=== PATIENT | female | born 2000 | race Caucasian/White ===

== ENCOUNTER 2023-06-23 07:06 | Emergency (ER) | payer BC ==
--- OUTSIDE RECORDS SUMMARY | 2023-06-23 07:10 | XMS REPORT | Continuity of Care Document ---
:2000 Author Organization [facility] t Address [address] [place] [address] [place] [id number] Care Team Providers Name Role Phone Hermelinda Chisholm Primary Care Physician Kris Attending Clinician Unavailable Jayant Alvarenga MD Attending Clinician Aliyah Beau MENDOZA Attending Clinician Only, Adc Test Attending Clinician Unavailable Mike Smalls MD Attending Clinician Doctor Unassigned, Doctor Phillips Attending Clinician Unavailable Provider, [facility] Attending Clinician Unavailable Green Kelly DEL TORO Attending Clinician Lab, Adc Fam Pob I Attending Clinician Unavailable Pob1, Acute Care Clinic Attending Clinician Unavailable EbLesa Johnson Attending Clinician LESA THORPE Attending Clinician Unavailable Kris Admitting Clinician Unavailable Payers Payer Name Policy Type Policy Number Effective Date Expiration Date S ource [place] [id number] 2020 00:00:00 [place] [id number] 2020 00:00[place]00 [place] Problems Condition Condition Condition Status Onset Resolution Last Treating Co mments Source Name Details Category Date Date Treatment Clinician Date No known No known Disease Unive rs active active ity of problems problems [facility] Allergies, Adverse Reactions, Alerts Allergy Allergy Status Severity Reaction(s) Onset Inactive Treating Comm ents Source Name Type Date Date Clinician NO KNOWN Drug Active Univers ALLERGIE Class ity of S [place] [facility] [place] Social History Social Habit Start Date Stop Date Quantity Comments Source History of tobacco 2016-01-08 Smoker Univer sity of use 00:00:00 [facility] Exposure to Not sure [facility] SARS-CoV-2 (event) [facility] History SDOH 2021-01-01 2021-01-01 2 University o f Alcohol Frequency 00:00:00 00:00:00 [facility] edical Branch History SDOH 2021-01-01 2021-01-01 1 University o f Alcohol Std Drinks 00:00:00 00:00:00 [facility] History SDOH 2021-01-01 2021-01-01 3 [place] o f Alcohol Binge 00:00:00 00:00:00 [facility] al Branch Cigarettes smoked 2020-12-31 2020-12-31 Univers ity of current (pack per 00:00:00 00:00:00 [facility] ) - Reported Branch Tobacco use and 2020-12-31 2020-12-31 Never used Universit y of exposure 00:00:00 00:00:00 [facility] Alcohol intake 2020-12-31 2020-12-31 Current drinker Unive rsity of 00:00:00 00:00:00 of alcohol [facility] (finding) [place] Sex Assigned At [birth year] Universit y of 00:00:00 00:00:00 [facility] Smoking Status Start Date Stop Date Source Current every day smoker 2020-12-31 00:00:00 Uni versity of [facility] Never smoker [facility] Medications Ordered Filled Start Stop Current Ordering Indication Dosage Frequency Signature Comments Components Source Medication Medication Date Date Medication? Clinician (SIG) Name Name ketorolac 2020- No 15mg 15 mg, Unive rs (TORADOL) 07-31 Slow IV ity of injection 12:00: 10:58 [place], [place] 15 mg 00 :00 ONCE, 1 Medical dose, [place] [facility] 07/31/21 at 0700, Routine
member of the legislative council approving Restricted medication : JAYANT ALVARENGA maalox:diph 2020- No 15mL 15 mL, Uni vers enhydrAMINE 07-31 Oral, ity of :lidocaine 12:00: 10:57 ONCE, 1 [place] as 2 % viscous 00 :00 dose, [place] [facility] ical 1:1:1 07/31/21 at [place] ([facility]) Routine oral suspension 15 mL ketorolac 2020- No 15mg 15 mg, Unive rs (TORADOL) 07-31 Slow IV ity of injection 12:00: 10:58 [place], [place] 15 mg 00 :00 ONCE, 1 Medical dose, [place] [facility] 07/31/21 at 0700, Routine
member of the legislative council approving Restricted medication : JAYANT ALVARENGA maalox:diph 2020- No 15mL 15 mL, Uni vers enhydrAMINE 07-31 Oral, ity of :lidocaine 12:00: 10:57 ONCE, 1 [place] as 2 % viscous 00 :00 dose, [place] [facility] ical 1:1:1 07/31/21 at [place] ([facility]) Routine oral suspension 15 mL pantoprazol Yes [id number] 40mg Take 1 Univers e 9-02 tablet by ity of (PROTONIX) 00:00: mouth [place] 40 mg EC 00 daily. Medical tablet Branch dicyclomine Yes [id number] 20mg Take 1 Univers 20 mg 9-02 tablet by ity of tablet 00:00: mouth [place] 00 every 6 Medical (six) Branch hours as needed for Abdominal pain. ondansetron 0 Yes [id number] 4mg Take 1 Univers (ZOFRAN) 4 9-02 tablet by ity of mg tablet 00:00: mouth [place] 00 every 8 Medical (eight) Branch hours as needed for Nausea and Vomiting (N/V). pantoprazol 0 Yes [id number] 40mg Take 1 Univers e 9-02 tablet by ity of (PROTONIX) 00:00: mouth [place] 40 mg EC 00 daily. Medical tablet Branch dicyclomine 0 Yes [id number] 20mg Take 1 Univers 20 mg 9-02 tablet by ity of tablet 00:00: mouth [place] 00 every 6 Medical (six) Branch hours as needed for Abdominal pain. ondansetron 0 Yes [id number] 4mg Take 1 Univers (ZOFRAN) 4 9-02 tablet by ity of mg tablet 00:00: mouth [place] 00 every 8 Medical (eight) Branch hours as needed for Nausea and Vomiting (N/V). ibuprofen 2020-0 Yes [id number] 600mg Take 1 U nivers 600 mg 4-28 tablet by ity of tablet 00:00: mouth [place] 00 every 6 Medical (six) Branch hours as needed for Pain (scale 4-6). ondansetron 2020-0 Yes [id number] 4mg Take 1 Univers (ZOFRAN 4-28 tablet by ity of ODT) 4 mg 00:00: mouth [place] disintegrat 00 every 8 Medic al ing tablet (eight) Branch hours as needed for Nausea and Vomiting (N/V). benzonatate 2020-0 Yes [id number] 200mg Take 1 Univers 200 mg 4-28 capsule by ity of capsule 00:00: mouth 3 [place] 00 (three) Medical times Branch daily as needed for Cough for up to 20 doses. ibuprofen 2020-0 Yes [id number] 600mg Take 1 U nivers 600 mg 4-28 tablet by ity of tablet 00:00: mouth [place] 00 every 6 Medical (six) Branch hours as needed for Pain (scale 4-6). ondansetron 2020-0 Yes [id number] 4mg Take 1 Univers (ZOFRAN 4-28 tablet by ity of ODT) 4 mg 00:00: mouth [place] disintegrat 00 every 8 Medic al ing tablet (eight) Branch hours as needed for Nausea and Vomiting (N/V). benzonatate 2020-0 Yes [id number] 200mg Take 1 Univers 200 mg 4-28 capsule by ity of capsule 00:00: mouth 3 [place] 00 (three) Medical times Branch daily as needed for Cough for up to 20 doses. ibuprofen 2020-0 Yes [id number] 600mg Take 1 U nivers 600 mg 4-28 tablet by ity of tablet 00:00: mouth [place] 00 every 6 Medical (six) Branch hours as needed for Pain (scale 4-6). ondansetron 2020-0 Yes [id number] 4mg Take 1 Univers (ZOFRAN 4-28 tablet by ity of ODT) 4 mg 00:00: mouth [place] disintegrat 00 every 8 Medic al ing tablet (eight) Branch hours as needed for Nausea and Vomiting (N/V). benzonatate Yes [id number] 200mg Take 1 Univers 200 mg 4-28 capsule by ity of capsule 00:00: mouth 3 (three) Medical times Branch daily as needed for Cough for up to 20 doses. cephALEXin 2020- No [id number] 500mg Take 1 Univers (KEFLEX) 4-28 05-09 capsule by ity of 500 mg 00:00: 04:59 mouth 3 [place] capsule 00 :00 (three) Medical times Branch daily for 10 days. Nitrofurant 2020- No [id number] 100mg Take 1 Univers oin&Nit. 2-02 -10 capsule by ity of [place] 00:00: 05:59 mouth 2 [place] as 100 mg 00 :00 (two) Medical capsule times Branch daily for 7 days. cephALEXin 2020-0 Yes Univers 500 mg 6-15 ity of capsule 00:00: [place] [address] Medical Branch cephALEXin 2020-0 Yes Univers 500 mg 6-15 ity of capsule 00:00: [place] [address] Medical Branch cephALEXin 2020-0 Yes Univers 500 mg 6-15 ity of capsule 00:00: [place] [address] Medical Branch cephALEXin 2020-0 Yes Univers 500 mg 6-15 ity of capsule 00:00: [place] [address] Medical Branch cephALEXin 2020-0 Yes Univers 500 mg 6-15 ity of capsule 00:00: [place] [facility] cephALEXin 2020-0 Yes Univers 500 mg 6-15 ity of capsule 00:00: [place] [address] Medical Branch cephALEXin 2020-0 Yes Univers 500 mg 6-15 ity of capsule 00:00: [place] [address] Medical Branch cephALEXin 2020-0 Yes Univers 500 mg 6-15 ity of capsule 00:00: [place] [address] Medical Branch cephALEXin 2020-0 Yes Univers 500 mg 6-15 ity of capsule 00:00: [place] [address] Medical [place] Vital Signs Vital Name Observation Time Observation Value Comments Source Systolic blood 2021-07-31 11:00:00 124 mm[Hg] Univer sity of pressure [facility] Diastolic blood 2021-07-31 11:00:00 81 mm[Hg] Unive rsity of pressure [facility] Heart rate 2021-07-31 11:00:00 62 /min Universi ty of [facility] Respiratory rate 2021-07-31 11:00:00 16 /min Univ ersity of [place] [facility] Oxygen saturation in 2021-07-31 11:00:00 100 /min University of Arterial blood by [facility] Pulse oximetry Branch Body temperature 2021-07-31 09:53:00 36.61 Romy Univ ersity of [facility] Body height 2021-07-31 09:53:00 157.5 cm Universi ty of [facility] Body weight 2021-07-31 09:53:00 47.628 kg Universi ty of [facility] BMI 2021-07-31 09:53:00 19.20 kg/m2 Universi ty of [place] [facility] Systolic blood 2021-03-26 21:06:55 101 mm[Hg] Univer sity of pressure [facility] Diastolic blood 2021-03-26 21:06:55 66 mm[Hg] Unive rsity of pressure [facility] Heart rate 2021-03-26 21:06:55 71 /min Universi ty of [facility] Body temperature 2021-03-26 21:06:55 36.83 Romy Univ ersity of [facility] Respiratory rate 2021-03-26 21:06:55 16 /min Univ ersity of [facility] Oxygen saturation in 2021-03-26 21:06:55 99 /min University of Arterial blood by [facility] Pulse oximetry Branch Body weight 2021-03-26 18:58:00 53.071 kg Universi ty of [facility] Systolic blood 2021-01-01 00:17:00 127 mm[Hg] Univer sity of pressure [facility] Diastolic blood 2021-01-01 00:17:00 80 mm[Hg] Unive rsity of pressure [facility] Heart rate 2021-01-01 00:17:00 119 /min Universi ty of [facility] Body temperature 2021-01-01 00:17:00 37.17 Romy Univ ersity of [facility] Respiratory rate 2021-01-01 00:17:00 18 /min Univ ersity of [facility] Body height 2021-01-01 00:17:00 157.5 cm Universi ty of [facility] Body weight 2021-01-01 00:17:00 53.071 kg Universi ty of [facility] BMI 2021-01-01 00:17:00 21.40 kg/m2 [facility] Oxygen saturation in 2021-01-01 00:17:00 98 /min University of Arterial blood by [facility] Pulse oximetry Branch Systolic blood 2020-05-19 17:07:00 99 mm[Hg] Univer sity of pressure [facility] Diastolic blood 2020-05-19 17:07:00 65 mm[Hg] Unive rsity of pressure [facility] Heart rate 2020-05-19 17:07:00 82 /min [facility] Body temperature 2020-05-19 17:07:00 37.06 Romy [facility] rate 2020-05-19 17:07:00 20 /min [facility] Body height 2020-05-19 17:07:00 157.5 cm [facility] Body weight 2020-05-19 17:07:00 51.982 kg [facility] BMI 2020-05-19 17:07:00 20.96 kg/m2 [facility] Oxygen saturation in 2020-05-19 17:07:00 100 /min [facility] Arterial blood by [facility] Pulse oximetry [place] Procedures Procedure Date / Time Performed Performing Clinician Sour e POCT TEST 2021-07-31 10:14:00 Jayant Alvarenga [facility] LIPASE 2021-07-31 10:13:00 Jayant Alvarenga [facility] COMP. METABOLIC PANEL 2021-07-31 10:13:00 Jayant Alvarenga [facility] ([id number]) [facility] CBC WITH DIFF 2021-07-31 10:13:00 Jayant Alvarenga [facility] URINALYSIS 2021-07-31 10:13:00 Jayant Alvarenga [facility] CONSENT/REFUSAL FOR 2021-07-31 09:52:19 Doctor Unassigned, No Un [facility] DIAGNOSIS AND Name [facility] TREATMENT COVID-19 (ID NOW RAPID 2021-03-26 21:02:00 Beau Ly [facility] TESTING) [facility] POCT TEST 2021-03-26 20:36:00 Beau Ly [facility] URINALYSIS 2021-03-26 20:15:00 Beau Ly [facility] CONSENT/REFUSAL FOR 2021-03-26 18:31:47 Doctor Unassigned, No [facility] DIAGNOSIS AND Name [facility] TREATMENT ASSIGNMENT OF BENEFITS 2021-01-10 15:51:48 Doctor Unassigned, No [facility] POCT URINALYSIS 2021-01-01 00:14:00 Kelly Ornelas [place] [facility] POCT TEST 2021-01-01 00:14:00 Johnson Kelly [facility] Encounters Start End Encounter Admission Attending Care Care Encounter Source Date/Time Date/Time Type Type Clinicians Facility Department ID 2021-09-29 Emergency [facility] [id number] Univers 19:51:03 [facility] 2021-09-28 Emergency [facility] [id number] Univers 15:53:09 [facility] 2023-01-30 2023-01-30 Outpatient GC_SWHAOMC_ PRIV PRIV [id number] [facility] 00:00:00 00:00:00 Black_D [id number] Medica l 2023-01-30 2023-01-30 Outpatient GC_SWHAOMC_ PRIV PRIV [id number] [facility] 00:00:00 00:00:00 Black_D [id number] Medica l 2023-01-25 2023-01-25 Outpatient GC_SWHAOMC_ PRIV PRIV [id number] [facility] 00:00:00 00:00:00 Black_D [id number] Medica l 2021-07-31 2021-07-31 Emergency [facility] [id number] Univers 04:42:00 06:56:[id number] [facility] [id number] [facility] [id number] [facility] 084 Branch 2021-03-26 2021-03-26 Emergency Beau Ly [facility] [id number] Univers 13:45:00 16:50:00 Jody Byrneston [id number] i ty of [place] 4[facility]2.7.2.686 [facility] [id number] [facility] 084 Branch 2021-01-10 2021-01-10 Laboratory Only, Adc Test [place] 1.2.840. 114 [id number] Univers 09:59:23 10:14:23 Only Slim Mike Jessie Madina [id number] ity of [place] 4.2.7.2.686 [facility] [id number] [facility] 353 Branch 2021-01-10 2021-01-10 Outpatient R [facility] [id number] Univers 10:00:00 10:00:00 ity of [facility] 2021-01-10 2021-01-10 Orders Doctor NUHA [id number] Univers 00:00:00 00:00:00 Only Unassigned, TAMMY [id number] [facility] 4.2.7.2.686 [place] as [id number] [facility] 009 Branch 2020-12-31 2020-12-31 Urgent Provider, [facility] [id number] Univers 17:51:40 18:11:40 [facility] [employer] [id number] ity of [place] 4.2.7.2.686 [place] as Professio [phone] [place] [address] [place] [address] Office [address] One 2020-12-31 2020-12-31 Outpatient R [facility] [id number] Univers 17:40:00 17:40:00 ity of [facility] 2020-12-28 2020-12-28 Laboratory Lab, Adc Fam Pob I [facility] 1.2. [id number] Univers 10:45:48 11:05:48 Only [employer] [id number] ity of [place] 4.2.7.2.686 [place] as Professio [id number] [place] dical [place]al [address] [place] [address] Office Building One 2020-12-28 2020-12-28 Outpatient R [facility] [id number] Univers 10:40:00 10:40:00 ity of [facility] 2020-12-28 2020-12-28 Letter Doctor NUHA [id number] 00:00:00 00:00:00 (Out) Unassigned, TAMMY [id number] ity of Doctor Phillips [facility] [id number] [place] as [id number] [address] 2020-05-19 2020-05-19 Urgent Pob1, Acute Care Clinic [facility] [id number]. [id number] Univers 12:04:55 12:24:55 [facility] [id number] ity of [place] 4.2.7.2.686 [place] as Profdarleneio [phone] [address] Office Building One 2020-05-19 2020-05-19 Outpatient R MAURILIO [facility] [id number] Univers 12:20:00 12:20:00 [facility] Results Test Description Test Time Test Comments Results Result Comments Source LIPASE 2021-07-31 11:27:40 Test Item Value Reference Range Interpretation Comme nts LIPASE (test code = 5761849760) 113 U/L 0-220 Lab Interpretation (test code = 66682-7) Normal [facility] 11:27:40 Test Item Value Reference Range Interpretation Comments LIPASE (test code = 3387672827) 113 U/L 0-220 Lab Interpretation (test code = Normal 22394-2) [facility] Met[facility] Panel ([id number])2021-07-31 11:09:37 Test Item Value Reference Range Interpretation Comments NA (test code = 142 mmol/L 135-145 0192538127) K (test code = 3.6 mmol/L 3.5-5.0 7414650184) CL (test code = 105 mmol/L 98-108 4365167744) CO2 TOTAL (test code = 26 mmol/L 23-31 9480807553) AGAP (test code = 2-16 2366961647) BUN (test code = 6 mg/dL 7-23 L 9746575376) GLUCOSE (test code = 103 mg/dL 70-110 2670558941) CREATININE (test code = 0.59 mg/dL 0.50-1.04 5023963426) TOTAL BILI (test code = 0.7 mg/dL 0.1-1.3 5620509654) CALCIUM (test code = 10.2 mg/dL 8.6-10.6 2576922209) T PROTEIN (test code = 8.3 g/dL 6.3-8.2 H 7766774715) ALBUMIN (test code = 5.0 g/dL 3.5-5.0 7575737952) ALK PHOS (test code = 85 U/L 34-122 4396719872) ALTv (test code = 11 U/L 5-35 1742-6) AST(SGOT) (test code = 22 U/L 13-40 7676377884) eGFR (test code = mL/min/1.73m2 1488703001) ANGELINE (test code = ANGELINE) Association of Glomerular Filtration Rate (GFR) and Staging of Kidney Disease* + --+ --+ ------+| GFR (mL/min/1.73 m2) ?| With Kidney Damage ?| ?Without Kidney Damage+ --------+ --------+ +| ?>90 ?| ?Stage one ?| ? Normal ?+ ---+ ---+ -------+| ?60-89 ?| ?Stage two ?| ? Decreased GFR ? + --+ --+ ------+| ?30-59 ?| ?Stage three ?| ? Stage three ? + --+ --+ ------+| ?15-29 ?| ?Stage four ? | ? Stage four ?+ ---+ ---+ -------+| ?<15 (or dialysis) ? ?| ?Stage five ? | ? Stage five ?+ ---+ ---+ -------+ *Each stage assumes the associated GFR level has been in effect for at least three months. ?Stages 1 to 5, with or without kidney disease, indicate chronic kidney disease. Notes: Determination of stages one and two (with eGFR >59mL/min/1.73 m2) requires estimation of kidney damage for at least three months as defined by structural or functional abnormalities of the kidney, manifested by either:Pathological abnormalities or Markers of kidney damage (including abnormalities in the composition of the blood or urine or abnormalities in imaging tests). Lab Interpretation Abnormal (test code = 51273-4) [facility]. Metabolic Panel ([id number])2021-07-31 11:09:37 Test Item Value Reference Range Interpretation Comments NA (test code = 142 mmol/L 135-145 2174566965) K (test code = 3.6 mmol/L 3.5-5.0 1403145201) CL (test code = 105 mmol/L 98-108 5396457188) CO2 TOTAL (test code = 26 mmol/L 23-31 9235944420) AGAP (test code = 2-16 3640809655) BUN (test code = 6 mg/dL 7-23 L 8520730480) GLUCOSE (test code = 103 mg/dL 70-110 8284198163) CREATININE (test code = 0.59 mg/dL 0.50-1.04 5177011420) TOTAL BILI (test code = 0.7 mg/dL 0.1-1.7 4797861772) CALCIUM (test code = 10.2 mg/dL 8.6-10.6 0985401907) T PROTEIN (test code = 8.3 g/dL 6.3-8.2 H 6575193005) ALBUMIN (test code = 5.0 g/dL 3.5-5.0 4583558662) ALK PHOS (test code = 85 U/L 34-122 9755722118) ALTv (test code = 11 U/L 5-35 1742-6) AST(SGOT) (test code = 22 U/L 13-40 0675166454) eGFR (test code = mL/min/1.73m2 8480672200) ANGELINE (test code = ANGELINE) Association of Glomerular Filtration Rate (GFR) and Staging of Kidney Disease* + --+ --+ ------+| GFR (mL/min/1.73 m2) ?| With Kidney Damage ?| ?Without Kidney Damage+ --------+ --------+ +| ?>90 ?| ?Stage one ?| ? Normal ?+ ---+ ---+ -------+| ?60-89 ?| ?Stage two ?| ? Decreased GFR ? + --+ --+ ------+| ?30-59 ?| ?Stage three ?| ? Stage three ? + --+ --+ ------+| ?15-29 ?| ?Stage four ? | ? Stage four ?+ ---+ ---+ -------+| ?<15 (or dialysis) ? ?| ?Stage five ? | ? Stage five ?+ ---+ ---+ -------+ *Each stage assumes the associated GFR level has been in effect for at least three months. ?Stages 1 to 5, with or without kidney disease, indicate chronic kidney disease. Notes: Determination of stages one and two (with eGFR >59mL/min/1.73 m2) requires estimation of kidney damage for at least three months as defined by structural or functional abnormalities of the kidney, manifested by either:Pathological abnormalities or Markers of kidney damage (including abnormalities in the composition of the blood or urine or abnormalities in imaging tests). Lab Interpretation Abnormal (test code = 60882-4) [facility] 11:09:16 Test Item Value Reference Range Interpretation Comments APPEARANCE (test code = Cloudy Clear A 4561986833) COLOR (test code = Yellow Yellow 3002138159) PH (test code = 4.8-8.0 2422371236) SP GRAVITY (test code = 1.003-1.030 9825050624) GLU U QUAL (test code = Normal Normal 2012039771) BLOOD (test code = 1+ Negative A 8317885256) KETONES (test code = Negative Negative 5094161057) PROTEIN (test code = Negative Negative 2887-8) UROBILIN (test code = Normal Normal 3670545776) BILIRUBIN (test code = Negative Negative 2900571770) NITRITE (test code = Negative Negative 5406534870) LEUK ISIDORO (test code = 500/uL Negative A 3556084618) RBC/HPF (test code = See_Comment H [Autom ated message] 3496788437) The system [facility] generated this result transmitted ref erence range: 0 - 3 HP F. The reference range was not used to int erpret this result as normal/abnormal . WBC/HPF (test code = See_Comment H [Autom ated message] 2397904213) The system [facility] generated this result transmitted ref erence range: 0 - 5 HP F. The reference range was not used to int erpret this result as normal/abnormal . BACTERIA (test code = Many Negative A 8989854999) MUCOUS (test code = Slight Negative LPF A 9551530477) SQ EPITH (test code = HPF 3191615873) Lab Interpretation (test Abnormal code = 04274-1) [facility] 11:09:16 Test Item Value Reference Range Interpretation Comments APPEARANCE (test code = Cloudy Clear A 3961590022) COLOR (test code = Yellow Yellow 5887479671) PH (test code = 4.8-8.0 6243197189) SP GRAVITY (test code = 1.003-1.030 3490826365) GLU U QUAL (test code = Normal Normal 7064708335) BLOOD (test code = 1+ Negative A 2118177005) KETONES (test code = Negative Negative 1696244924) PROTEIN (test code = Negative Negative 2887-8) UROBILIN (test code = Normal Normal 7741097349) BILIRUBIN (test code = Negative Negative 5344147993) NITRITE (test code = Negative Negative 0129057265) LEUK ISIDORO (test code = 500/uL Negative A 1298908460) RBC/HPF (test code = See_Comment H [Autom ated message] 5344488700) The system [facility] generated this result transmitted ref erence range: 0 - 3 HP F. The reference range was not used to int erpret this result as normal/abnormal . WBC/HPF (test code = See_Comment H [Autom ated message] 6819453373) The system [facility] generated this result transmitted ref erence range: 0 - 5 HP F. The reference range was not used to int erpret this result as normal/abnormal . BACTERIA (test code = Many Negative A 7116288621) MUCOUS (test code = Slight Negative LPF A 1612578549) SQ EPITH (test code = HPF 7036059881) Lab Interpretation (test Abnormal code = 82264-0) [facility] [id number] 10:56:56 Test Item Value Reference Range Interpretation Comments WBC (test code = See_Comment H [Automated 6690-2) message] The [employer] stem which generated this result transmitted reference range : 4.30 - 11.10 10*3/?L. The reference range was not used to interpret this result as normal/abnormal . RBC (test code = See_Comment [Automated 789-8) message] The sy stem which generated this result transmitted reference range : 3.93 - 5.25 10*6/?L. The reference range was not used to interpret this result as normal/abnormal . HGB (test code = 13.7 g/dL 11.6-15.0 718-7) HCT (test code = 38.8 % 35.7-45.2 4544-3) MCV (test code = 87.8 fL 80.6-95.5 787-2) MCH (test code = 31.0 pg 25.9-32.8 785-6) MCHC (test code = 35.3 g/dL 31.6-35.1 H 786-4) RDW-SD (test code = 36.8 fL 39.0-49.9 L 04759-1) RDW-CV (test code = 11.5 % 12.0-15.5 L 788-0) PLT (test code = See_Comment [Automated 777-3) message] The sy stem which generated this result transmitted reference range : 166 - 358 10*3/ ?L. The reference r shankar was not used to interpret this result as normal/abnormal . MPV (test code = 10.2 fL 9.5-12.9 70651-6) NRBC/100 WBC (test See_Comment [Automat ed code = 3750956339) message] The system which generated this result transmitted reference range : 0.0 - 10.0 /100 WBCs. The refer ence range was not u sed to interpret th is result as normal/abnormal . NRBC x10^3 (test code <0.01 See_Comment [Auto mated = 8690054789) message] The s ystem which generated this result transmitted reference range : 10*3/?L. The reference range was not used to interpret this result as normal/abnormal . GRAN MAT (NEUT) % 73.1 % (test code = 770-8) IMM GRAN % (test code 0.40 % = 5534198203) LYMPH % (test code = 17.0 % 736-9) MONO % (test code = 6.8 % 5905-5) EOS % (test code = 2.3 % 713-8) BASO % (test code = 0.4 % 706-2) GRAN MAT x10^3(ANC) 8.72 10*3/uL 1.88-7.09 H (test code = 7405700043) IMM GRAN x10^3 (test 0.05 10*3/uL 0.00-0.06 code = 7744750035) LYMPH x10^3 (test code 2.03 10*3/uL 1.32-3.29 = 731-0) MONO x10^3 (test code 0.81 10*3/uL 0.33-0.92 = 742-7) EOS x10^3 (test code = 0.28 10*3/uL 0.03-0.39 711-2) BASO x10^3 (test code 0.05 10*3/uL 0.01-0.07 = 704-7) Lab Interpretation Abnormal (test code = 54859-0) [facility] with [id number] 10:56:56 Test Item Value Reference Range Interpretation Comments WBC (test code = See_Comment H [Automated 6690-2) message] The sy stem which generated this result transmitted reference range : 4.30 - 11.10 10*3/?L. The reference range was not used to interpret this result as normal/abnormal . RBC (test code = See_Comment [Automated 789-8) message] The sy stem which generated this result transmitted reference range : 3.93 - 5.25 10*6/?L. The reference range was not used to interpret this result as normal/abnormal . HGB (test code = 13.7 g/dL 11.6-15.0 718-7) HCT (test code = 38.8 % 35.7-45.2 4544-3) MCV (test code = 87.8 fL 80.6-95.5 787-2) MCH (test code = 31.0 pg 25.9-32.8 785-6) MCHC (test code = 35.3 g/dL 31.6-35.1 H 786-4) RDW-SD (test code = 36.8 fL 39.0-49.9 L 95836-0) RDW-CV (test code = 11.5 % 12.0-15.5 L 788-0) PLT (test code = See_Comment [Automated 777-3) message] The sy stem which generated this result transmitted reference range : 166 - 358 10*3/ ?L. The reference r shankar was not used to interpret this result as normal/abnormal . MPV (test code = 10.2 fL 9.5-12.9 64344-1) NRBC/100 WBC (test See_Comment [Automat ed code = 4808674314) message] The system which generated this result transmitted reference range : 0.0 - 10.0 /100 WBCs. The refer ence range was not u sed to interpret th is result as normal/abnormal . NRBC x10^3 (test code <0.01 See_Comment [Auto mated = 4776270437) message] The s ystem which generated this result transmitted reference range : 10*3/?L. The reference range was not used to interpret this result as normal/abnormal . GRAN MAT (NEUT) % 73.1 % (test code = 770-8) IMM GRAN % (test code 0.40 % = 3768989616) LYMPH % (test code = 17.0 % 736-9) MONO % (test code = 6.8 % 5905-5) EOS % (test code = 2.3 % 713-8) BASO % (test code = 0.4 % 706-2) GRAN MAT x10^3(ANC) 8.72 10*3/uL 1.88-7.09 H (test code = 2287875277) IMM GRAN x10^3 (test 0.05 10*3/uL 0.00-0.06 code = 6271583165) LYMPH x10^3 (test code 2.03 10*3/uL 1.32-3.29 = 731-0) MONO x10^3 (test code 0.81 10*3/uL 0.33-0.92 = 742-7) EOS x10^3 (test code = 0.28 10*3/uL 0.03-0.39 711-2) BASO x10^3 (test code 0.05 10*3/uL 0.01-0.07 = 704-7) Lab Interpretation Abnormal (test code = 76095-8) [facility] [id number] 10:14:00 Test Item Value Reference Range Interpretation Comments POCT PREG (test code = 1605) negative On board controls acceptable with yes C Line (test code = 3574) POCT PREG LOT # (test code = 3575) [id number] POCT PREG TEST DATE (test 11/28/2022 code = 3576) Lab Interpretation (test code = Normal 05109-6) [facility] [id number] 10:14:00 Test Item Value Reference Range Interpretation Comments POCT PREG (test code = 1605) negative On board controls acceptable with yes C Line (test code = 3574) POCT PREG LOT # (test code = 3575) [id number] POCT PREG TEST DATE (test 11/28/2022 code = 3576) Lab Interpretation (test code = Normal 78675-6) [facility] (ID NOW RAPID TESTING)2021-03-26 21:45:31 Test Item Value Reference Range Interpretation Comments SARS-CoV-2 Rapid ID NOW Not Detected Not Detected (test code = 05058-0) ANGELINE (test code = ANGELINE) ID NOW COVID-19 Assay is an isothermal nucleic acid amplification test intended for the qualitative detection of nucleic acid from SARS-CoV-2 viral RNA in nasopharyngeal (FLOTATION OPERATOR) specimens. It is used under Emergency Use Authorization (EUA) by FDA. The limit of detection (LOD) of the assay is 125 Genome Equivalents/mL. A positive result is indicative of the presence of SARS-CoV-2 RNA. ?Clinical correlation with patient history and other diagnostic information is necessary to determine patient infection status. A negative (Not Detected) result does not preclude SARS-CoV-2 infection. In patients with clinical symptoms and other tests that are consistent with SARS-CoV-2 infection, negative results should be treated as presumptive negative and a new specimen should be tested with alternative PCR molecular test. Invalid: Please collect a new specimen for repeat patient testing if clinically indicated. Lab Interpretation Normal (test code = 18153-6) [facility]21[facility]28 20:59:37 Test Item Value Reference Range Interpretation Comments APPEARANCE (test code = Clear Clear 0838728885) COLOR (test code = Straw Yellow A 2034220183) PH (test code = 4.8-8.0 4704859041) SP GRAVITY (test code = 1.003-1.030 8199438882) GLU U QUAL (test code = Normal Normal 0897469223) BLOOD (test code = Negative Negative 8872735566) KETONES (test code = Negative Negative 9934944418) PROTEIN (test code = Negative Negative 2887-8) UROBILIN (test code = Normal Normal 0250998006) BILIRUBIN (test code = Negative Negative 4123354433) NITRITE (test code = Negative Negative 2382207697) LEUK ISIDORO (test code = 25/uL Negative A 8202404061) RBC/HPF (test code = See_Comment [Autom ated message] 6104163129) The system [facility] generated this result transmitted ref erence range: 0 - 3 HP F. The reference range was not used to int erpret this result as normal/abnormal . WBC/HPF (test code = See_Comment [Autom ated message] 0099829603) The system [facility] generated this result transmitted ref erence range: 0 - 5 HP F. The reference range was not used to int erpret this result as normal/abnormal . BACTERIA (test code = Many Negative A 9346310012) AMORPHOUS (test code = Rare Rare HPF 0622563558) SQ EPITH (test code = <1 HPF 9945552127) Lab Interpretation (test Abnormal code = 54738-3) [facility] [id number] 20:36:00 Test Item Value Reference Range Interpretation Comments POCT PREG (test code = 1605) neg On board controls acceptable with yes C Line (test code = 3574) POCT PREG LOT # (test code = 3575) [id number] POCT PREG TEST DATE (test 10/28/2022 code = 3576) Lab Interpretation (test code = Normal 86544-5) [facility] URINALYSIS W SPECIFIC [id number] 00:25:00 Test Item Value Reference Range Interpretation Comments POCT U SP GRAV (test code = 1.020 mg/dl 1.005-1.025 3255) POCT PH U (test code = 3254) 5 mg/dl 5-8 POCT U LEUK EST (test code = Trace Negative - Negative 3263) POCT U NIT (test code = 3262) Positive Negative - Negative POCT U PROT (test code = Trace Negative - Negative 3259) POCT U GLU (test code = 3256) Negative Negative - Negative POCT U KETONE (test code = Negative Negative - Negative 3258) POCT U UROBILI (test code = 8 mg/dl 0.2-1 3260) POCT U BILI (test code = 2+ Negative - Negative 3261) POCT U BLD (test code = 3257) Trace Negative - Negative POCT U COLOR (test code = orange 3266) POCT U APPEAR (test code = cloudy 326) Lab Interpretation (test code Abnormal = 86603-1) [facility] [id number] 00:25:00 Test Item Value Reference Range Interpretation Comments POCT PREG (test code = 1605) Negative On board controls acceptable with C Yes Line (test code = 3574) POCT PREG LOT # (test code = 3575) POCT PREG TEST DATE (test code = 3576) Lab Interpretation (test code = Normal 37976-2) [facility]"
[2023-06-23 07:53] LABS: Absolute Lymphocytes (CBC) 1.6 K/uL (0.7-4.9); Hematocrit 36.8 % (36.0-45.0); Lymphocytes % 15.2 % (15.3-44.8); MCV 88.2 fL (80-100); MPV 7.6 fL (7.6-11.3); RBC Red Blood Cell Count 4.17 M/uL (3.86-4.86)
--- NOTE | 2023-06-23 07:54 | RAD REPORT ---
EXAM DESCRIPTION: Omi Single View06/23/2023 7:49 am CLINICAL HISTORY: Shortness of breath COMPARISON: none FINDINGS: The lungs appear clear of acute infiltrate. The heart is normal size IMPRESSION: No acute abnormalities displayed
[2023-06-23 08:12] LABS: Albumin 3.8 g/dL (3.4-5.0); Bilirubin Direct 0.1 mg/dL (0-0.2); Bilirubin Indirect, Calculated 0.3 mg/dL (0.2-0.8); Bilirubin Total 0.4 mg/dL (0.2-1.0); Potassium 3.6 mEq/L (3.5-5.1); Protein, Total 7.6 g/dL (6.4-8.2); Troponin High Sensitivity 3.5 pg/mL (<58.9)
[2023-06-23] MEDS ORDERED: KETOROLAC 30 MG/ML INJ ONE (08:12)
--- NOTE | 2023-06-23 08:38 | ER ---
Nurse's Notes [facility] Name: Jannette Wilkes Age: 23 yrs Sex: Female : 2000 Arrival Date: 06/23/2023 Time: 07:06 Bed 15 Private MD: Hermelinda Chisholm H Diagnosis: Pleuritic chest pain Presentation: 06/23 07:15 Chief complaint: Patient states: SOB started last night, + cough. No fever. Coronavirus ll1 screen: Vaccine status: Patient reports being unvaccinated. Client denies travel out of the [place] in the last 14 days. cough unrelated to allergies, difficulty breathing, shortness of breath, Client presents with at least one sign or symptom that may indicate coronavirus-19. Standard/surgical mask placed on the client. Ebola Screen: Patient denies travel to an Ebola-affected area in the 21 days before illness onset. Initial Sepsis Screen: Does the patient meet any 2 criteria? No. Patient's initial sepsis screen is negative. Does the patient have a suspected source of infection? Yes: Productive cough/pneumonia. Risk Assessment: Do you want to hurt yourself or someone else? Patient reports no desire to harm self or others. Onset of symptoms was June 22, 2023. 07:15 Method Of Arrival: Ambulatory ll1 07:15 Acuity: TAWNYA 4 ll1 Triage Assessment: 07:17 General: Appears uncomfortable, Behavior is calm, cooperative, appropriate for age. ll1 Pain: Complains of pain in chest Pain currently is 7 out of 10 on a pain scale. Respiratory: Reports shortness of breath cough that is Onset: The symptoms/episode began/occurred yesterday, the patient has moderate shortness of breath. Historical: - Allergies: 07:15 No Known Allergies; ll1 - PMHx: 07:15 None; ll1 - PSHx: 07:15 None; ll1 - Immunization history:: Client reports having NOT received the Covid vaccine. - Social history:: Smoking status: Patient reports the use of cigarette tobacco products, denies chronic smoking, but will smoke occasionally, Reported history of juuling and/or vaping. Screenin:42 [facility] ED Fall Risk Assessment (Adult) History of falling in the last 3 months, kc6 including since admission No falls in past 3 months (0 pts) Confusion or Disorientation No (0 pts) Intoxicated or Sedated No (0 pts) Impaired Gait No (0 pts) Mobility Assist Device Used No (0 pt) Altered Elimination No (0 pt) Score/Fall Risk Level 0 - 2 = Low Risk. Abuse screen: Denies threats or abuse. Denies injuries from another. Nutritional screening: No deficits noted. Tuberculosis screening: No symptoms or risk factors identified. Assessment: 07:41 General: Appears in no apparent distress. comfortable, Behavior is calm, cooperative, kc6 appropriate for age. Neuro: Level of Consciousness is awake, alert, obeys commands, Oriented to person, place, time, situation, Appropriate for age. Cardiovascular: Reports chest pain, shortness of breath, Heart tones S1 S2 present Capillary refill < 3 seconds Rhythm is sinus rhythm. Respiratory: Reports shortness of breath cough that is Airway is patent Trachea midline Respiratory effort is even, unlabored, Respiratory pattern is regular, symmetrical, Breath sounds are clear bilaterally. GI: No signs and/or symptoms were reported involving the gastrointestinal system. : No signs and/or symptoms were reported regarding the genitourinary system. EENT: No signs and/or symptoms were reported regarding the EENT system. Derm: No signs and/or symptoms reported regarding the dermatologic system. Skin is intact, is healthy with good turgor, Skin is pink, warm \T\ dry. Musculoskeletal: No signs and/or symptoms reported regarding the musculoskeletal system. Circulation, motion, and sensation intact. Capillary refill < 3 seconds, Range of motion: intact in all extremities. 08:25 Reassessment: Patient appears in no apparent distress at this time. No changes from kc6 previously documented assessment. Patient and/or family updated on plan of care and expected duration. Pain level reassessed. Patient is alert, oriented x 3, equal unlabored respirations, skin warm/dry/pink. Vital Signs: 07:15 BP 117 / 75; Pulse 87; Resp 18; Temp 98.2; Pulse Ox 100% on R/A; Weight 60.33 kg; ll1 Height 5 ft. 2 in. ; Pain 7/10; 08:26 BP 110 / 79; Pulse 79; Resp 18 S; Pulse Ox 100% on R/A; Pain 5/10; kc6 07:15 Body Mass Index 24.33 (60.33 kg, 157.48 cm) ll1 07:15 Pain Scale: Adult ll1 08:26 Pain Scale: Adult kc6 ED Course: 07:07 Patient arrived in ED. am2 07:07 Hermelinda Chisholm MD is Private Physician. am2 07:12 Rosaline Smalls MD is Attending Physician. sp3 07:13 Diane Gupta, RN is Primary Nurse. kc6 07:15 Arm band placed on Patient placed in an exam room, on a stretcher. ll1 07:17 Triage completed. ll1 07:42 Patient has correct armband on for positive identification. Bed in low position. Call kc6 light in reach. Side rails up X 1. Adult w/ patient. 07:50 XRAY Chest (1 view) In Process Unspecified. EDMS 07:51 Inserted saline lock: 22 gauge in right forearm, using aseptic technique. Blood ds4 collected. 08:46 No provider procedures requiring assistance completed. IV discontinued, intact, kc6 bleeding controlled, No redness/swelling at site. Pressure dressing applied. Administered Medications: 08:07 Drug: Ketorolac IVP 15 mg Route: IVP; Site: right forearm; kc6 08:46 Follow up: Response: No adverse reaction; Pain is decreased kc6 Medication: 08:46 VIS not applicable for this client. kc6 Outcome: 08:38 Discharge ordered by . sp3 08:46 Discharged to home ambulatory, with significant other. kc6 08:46 Condition: improved 08:46 Discharge instructions given to patient, Instructed on discharge instructions, follow up and referral plans. Demonstrated understanding of instructions, follow-up care. 08:47 Patient left the ED. kc6 Signatures: Dispatcher [employer] EDMS Mahin Watts ds4 Keshia Morse am2 Donita Jack RN RN ll1 Rosaline Smalls MD MD sp3 Diane Gupta RN RN kc6
--- NOTE | 2023-06-23 08:38 | EDPHYS ---
Physician Documentation [facility] Name: Jannette Wilkes Age: 23 yrs Sex: Female : 2000 Arrival Date: 06/23/2023 Time: 07:06 Bed 15 Private MD: Hermelinda Chisholm H ED Physician Rosaline Smalls HPI: 06/23 07:34 This 23 yrs old Female presents to ER via Ambulatory with complaints of Breathing sp3 Difficulty. 07:34 This 23 yrs old Female presents to ER via Ambulatory with complaints of Breathing sp3 Difficulty and chest pain on inspiration. 07:34 23-year-old female with no significant past medical history presents with chief sp3 complaint of pleuritic chest pain upon breathing. She denies actual difficulty breathing, shortness of breath, wheezing or any other signs or symptoms at this time. Symptoms of been occurring since yesterday evening at which point she thought it was "gastritis" and she went to bed and awoke this morning with continuing symptoms. She decided at that point to come to the ED. On review of systems, she denies headache, URI symptoms, cough, neck pain, chest pain while not breathing, back pain, abdominal pain, nausea, vomiting, diarrhea, fever, syncope, near syncope, neurological symptoms, prolonged immobilization, international travel, known sick contacts, prior pulmonary embolism, family history of PE or ACS, or any other signs or symptoms at this time.. Historical: - Allergies: 07:15 No Known Allergies; ll1 - PMHx: 07:15 None; ll1 - PSHx: 07:15 None; ll1 - Immunization history:: Client reports having NOT received the Covid vaccine. - Social history:: Smoking status: Patient reports the use of cigarette tobacco products, denies chronic smoking, but will smoke occasionally, Reported history of juuling and/or vaping. ROS: 07:36 Constitutional: Negative for fever, chills, and weight loss, Eyes: Negative for injury, sp3 pain, redness, and discharge, ENT: Negative for injury, pain, and discharge, Neck: Negative for injury, pain, and swelling, Abdomen/GI: Negative for abdominal pain, nausea, vomiting, diarrhea, and constipation, Back: Negative for injury and pain, MS/Extremity: Negative for injury and deformity, Skin: Negative for injury, rash, and discoloration, Neuro: Negative for headache, weakness, numbness, tingling, and seizure, Psych: Negative for depression, anxiety, suicide ideation, homicidal ideation, and hallucinations, Allergy/Immunology: Negative for hives, rash, and allergies, Endocrine: Negative for neck swelling, polydipsia, polyuria, polyphagia, and marked weight changes, Hematologic/Lymphatic: Negative for swollen nodes, abnormal bleeding, and unusual bruising. 07:36 All other systems are negative. Exam: 07:36 Constitutional: This is a well developed, well nourished patient who is awake, alert, sp3 and in no acute distress. Head/Face: Normocephalic, atraumatic. Eyes: Pupils equal round and reactive to light, extra-ocular motions intact. Lids and lashes normal. Conjunctiva and sclera are non-icteric and not injected. Cornea within normal limits. Periorbital areas with no swelling, redness, or edema. ENT: Nares patent. No nasal discharge, no septal abnormalities noted. External auditory canals are clear. Oropharynx with no redness, swelling, or masses, exudates, or evidence of obstruction, uvula midline. Mucous membranes moist. Neck: Trachea midline, no thyromegaly or masses palpated, and no cervical lymphadenopathy. Supple, full range of motion without nuchal rigidity, or vertebral point tenderness. No Meningismus. Chest/axilla: Normal chest wall appearance and motion. Nontender with no deformity. No lesions are appreciated. Cardiovascular: Regular rate and rhythm with a normal S1 and S2. No gallops, murmurs, or rubs. Normal PMI, no JVD. No pulse deficits. Respiratory: Lungs have equal breath sounds bilaterally, clear to auscultation and percussion. No rales, rhonchi or wheezes noted. No increased work of breathing, no retractions or nasal flaring. Abdomen/GI: Soft, non-tender, with normal bowel sounds. No distension or tympany. No guarding or rebound. No evidence of tenderness throughout. Back: No spinal tenderness. No costovertebral tenderness. Full range of motion. Skin: Warm, dry with normal turgor. Normal color with no rashes, no lesions, and no evidence of cellulitis. MS/ Extremity: Pulses equal, no cyanosis. Neurovascular intact. Full, normal range of motion. Neuro: Awake and alert, GCS 15, oriented to person, place, time, and situation. Cranial nerves II-XII grossly intact. Motor strength 5/5 in all extremities. Sensory grossly intact. Cerebellar exam normal. Normal gait. Psych: Awake, alert, with orientation to person, place and time. Behavior, mood, and affect are within normal limits. 07:38 ECG was reviewed by the Attending Physician. EKG demonstrates normal sinus rhythm at 77 sp3 bpm with normal intervals, normal QRS, normal axis, normal ST/T-segment's without evidence of ischemia, hyperkalemia, or pericarditis. Vital Signs: 07:15 BP 117 / 75; Pulse 87; Resp 18; Temp 98.2; Pulse Ox 100% on R/A; Weight 60.33 kg; ll1 Height 5 ft. 2 in. ; Pain 7/10; 08:26 BP 110 / 79; Pulse 79; Resp 18 S; Pulse Ox 100% on R/A; Pain 5/10; kc6 07:15 Body Mass Index 24.33 (60.33 kg, 157.48 cm) ll1 07:15 Pain Scale: Adult ll1 08:26 Pain Scale: Adult kc6 MDM: 07:12 Patient medically screened. sp3 07:37 Data reviewed: vital signs, nurses notes, lab test result(s), radiologic studies. ED sp3 course: 23-year-old female with pleuritic type chest pain. Differential diagnosis includes pleurisy, mild bronchitis, pulmonary embolism, pneumothorax, gastritis, biliary pathology, pericarditis, among others. Clinically have ruled out acute coronary syndrome, sepsis, shock, or any other critical findings at this time. Her vital signs are normal. Do not believe this is aortic pathology however we will assess with chest x-ray of the aortic knob. Other diagnostics include laboratory values including D-dimer. She will receive ketorolac IV for symptoms. Disposition is pending patient course and work-up results. Probable discharge if work-up is negative and she feels better.. 08:37 ED course: Full work-up was negative including chest x-ray and D-dimer. Patient feels sp3 better after ketorolac. We will safely discharge her home at this time with general precautions and follow-up with PCP.. 06/23 07:24 Order name: Basic Metabolic Panel; Complete Time: 08:33 sp3 06/23 07:24 Order name: CBC with Diff; Complete Time: 08:33 sp3 06/23 07:24 Order name: D-Dimer; Complete Time: 08:33 sp3 06/23 07:24 Order name: LFT's; Complete Time: 08:33 sp3 06/23 07:24 Order name: Troponin HS; Complete Time: 08:33 sp3 06/23 07:24 Order name: XRAY Chest (1 view); Complete Time: 08:02 sp3 06/23 07:24 Order name: EKG; Complete Time: 07:25 sp3 06/23 07:24 Order name: EKG - Nurse/Tech; Complete Time: 07:39 sp3 06/23 07:24 Order name: IV Saline Lock; Complete Time: 07:42 sp3 06/23 07:24 Order name: Labs collected and sent; Complete Time: 07:42 sp3 Administered Medications: 08:07 Drug: Ketorolac IVP 15 mg Route: IVP; Site: right forearm; kc6 08:46 Follow up: Response: No adverse reaction; Pain is decreased kc6 Disposition Summary: 06/23/23 08:38 Discharge Ordered Location: Home sp3 Condition: Stable sp3 Diagnosis - Pleuritic chest pain sp3 Followup: sp3 - With: Private Physician - When: Upon discharge from the Emergency Department - Reason: Continuance of care Discharge Instructions: - Discharge Summary Sheet sp3 - Nonspecific Chest Pain, Adult sp3 Forms: - Medication Reconciliation Form sp3 - Thank You Letter sp3 - Antibiotic Education sp3 - Prescription Opioid Use sp3 - Patient Portal Instructions sp3 Signatures: Dispatcher [employer] Donita Head, RN RN ll1 Rosaline Smalls MD MD sp3 Diane Gupta RN RN kc6
[2023-06-23 09:03] VITALS: O2SAT 100
[2023-06-23 09:05] VITALS: BP 117/75; TEMP 98.2
--- NOTE | 2023-06-24 13:23 | EKG ---
Test Date: 2023-06-23 Test Time: 07:37:36 Acid Splicer: KI MEASUREMENT RESULTS: Intervals: Rate: 77 LA: 168 QRSD: 84 QT: 398 QTc: 450 [place]: P: 50 LA: 168 QRS: 82 T: 47 INTERPRETIVE STATEMENTS: Normal sinus rhythm Normal ECG No previous ECG available for comparison Electronically Signed On 06-24-23 13:20:16 CDT by Neno Estes
== END 2023-06-23 08:47 | disposition home or self-care (01) ==
LOC: ER 07:06
DX: R07.89 Other chest pain (principal); F17.210 Nicotine dependence, cigarettes, uncomplicated
CPT/HCPCS: 36415; 71045; 80048; 80076; 84484; 85025; 85379; 93005; 96374; 99284

== ENCOUNTER 2023-10-27 17:59 | Emergency (ER) | payer BC ==
--- OUTSIDE RECORDS SUMMARY | 2023-10-27 18:05 | XMS REPORT | Continuity of Care Document ---
:2000 Author Organization [facility] t Address [address] [place] [address] [place] [id number] Care Team Providers Name Role Phone [facility] EB GRAMAJO Attending Clinician Unavailable JANETH ALCANTAR Attending Clinician Unavailable Janeth Alcantar PA-C Attending Clinician Unknown, Attending Attending Clinician Unavailable Doctor Unassigned, [place] Attending Clinician Unavailable MONCHO_HEATHER_Dean_Trell Attending Clinician Unavailable Jayant Alvarenga MD Attending Clinician AliyahBeau Kaba Attending Clinician Only, Adc Test Attending Clinician Unavailable Mike Smalls MD Attending Clinician Provider, [facility] Attending Clinician Unavailable Green Kelly DEL TORO Attending Clinician Lab, Adc Fam Pob I Attending Clinician Unavailable Pob1, Acute Care Clinic Attending Clinician Unavailable Lesa Jain Attending Clinician LESA THORPE Attending Clinician Unavailable MONCHO_HEATHER_Dean_Trell Admitting Clinician Unavailable Payers Payer Name Policy Type Policy Number Effective Date Expiration Date S allan[place]jo [place] [id number] 2020 00:00:00 [place] [id number] 2020 00:00:00 [place] Problems Condition Condition Condition Status Onset Resolution Last Treating Co mments Source Name Details Category Date Date Treatment Clinician Date No known No known Disease Unive rs active active ity of problems problems [facility] Allergies, Adverse Reactions, Alerts Allergy Allergy Status Severity Reaction(s) Onset Inactive Treating Comm ents Source Name Type Date Date Clinician NO KNOWN Drug Active Univers ALLERGIE Class ity of S [facility] Social History Social Habit Start Date Stop Date Quantity Comments Source History of tobacco 2016-01-08 Cigarette Smoker University of use 00:00:00 [facility] Sexual orientation Univer sity [facility] Exposure to 2021-07-01 2021-07-31 Not sure [facility] SARS-CoV-2 (event) 00:00:00 04:50:00 [facility] Branch History SDOH 2021-01-01 2021-01-01 2 University o f Alcohol Frequency 00:00:00 00:00:[address] [facility] edical Branch History SDOH 2021-01-01 2021-01-01 1 [place] o f Alcohol Std Drinks 00:00:00 00:00:00 [facility] Branch History SDOH 2021-01-01 2021-01-01 3 University o f Alcohol Binge 00:00:00 00:00:00 [facility] al Branch History of Social 2020-12-31 2020-12-31 Univers ity of function 00:00:00 00:00:00 [facility] Cigarettes smoked 2020-12-31 2020-12-31 Univers ity of current (pack per 00:00:00 00:00:[address] [facility] ) - Reported Branch Tobacco use and 2020-12-31 2020-12-31 Smokeless Universit y of exposure 00:00:00 00:00:00 tobacco non-user [facility] dical [place] Alcohol intake 2020-12-31 2020-12-31 Current drinker Unive rsity of 00:00:00 00:00:00 of alcohol [facility] (finding) [place] Sex Assigned At [birth year] Universit y of 00:00:00 00:00:00 [facility] Smoking Status Start Date Stop Date Source Smokes tobacco daily 2020-12-31 00:00:00 Univers ity of [facility] Never smoker [facility] Branch Medications Ordered Filled Start Stop Current Ordering Indication Dosage Frequency Signature Comments Components Source Medication Medication Date Date Medication? Clinician (SIG) Name Name ketorolac 2020- No 15mg 15 mg, Unive rs (TORADOL) 07-31 Slow IV ity of injection 12:00: 10:58 [place], [place] 15 mg 00 :00 ONCE, 1 Medical dose, [facility] 07/31/21 at 0700, Routine
city council member approving Restricted medication : JAYANT ALVARENGA maalox:diph 2020- No 15mL 15 mL, Uni vers enhydrAMINE 07-31 Oral, ity of :lidocaine 12:00: 10:57 ONCE, 1 [place] 2 % viscous 00 :00 dose, [place] Med ical 1:1:1 07/31/21 at [place] ([facility], [facility]) Routine oral suspension 15 mL ketorolac No 15mg 15 mg, Unive rs (TORADOL) 07-31 Slow IV ity of injection 12:00: 10:58 [place], [place] 15 mg 00 :00 ONCE, 1 Medical dose, [facility] 07/31/21 at 0700, Routine
city council member approving Restricted medication : JAYANT ALVARENGA maalox:diph No 15mL 15 mL, Uni vers enhydrAMINE 07-31 Oral, ity of :lidocaine 12:00: 10:57 ONCE, 1 [place] as 2 % viscous 00 :00 dose, [place] Med ical 1:1:1 07/31/21 at [place] [facility] Routine oral suspension 15 mL pantoprazol Yes [id number] 40mg Take 1 Univers e - tablet by ity of (PROTONIX) 00:00: mouth [place] 40 mg EC 00 daily. Medical tablet Branch dicyclomine Yes [id number] 20mg Take 1 Univers 20 mg 07-31 tablet by ity of tablet 00:00: mouth [place] 00 every 6 Medical (six) Branch hours as needed for Abdominal pain. ondansetron Yes [id number] 4mg Take 1 Univers (ZOFRAN) 4 07-31 tablet by ity of mg tablet 00:00: mouth [place] 00 every 8 Medical (eight) Branch hours as needed for Nausea and Vomiting (N/V). pantoprazol 2020-0 Yes [id number] 40mg Take 1 Univers e 9-02 tablet by ity of (PROTONIX) 00:00: mouth [place] 40 mg EC 00 daily. Medical tablet Branch dicyclomine 2020-0 Yes [id number] 20mg Take 1 Univers 20 mg 9-02 tablet by ity of tablet 00:00: mouth [place] 00 every 6 Medical (six) Branch hours as needed for Abdominal pain. ondansetron 2020-0 Yes [id number] 4mg Take 1 Univers (ZOFRAN) 4 9-02 tablet by ity of mg tablet 00:00: mouth [place] 00 every 8 Medical (eight) Branch hours as needed for Nausea and Vomiting (N/V). pantoprazol 2020-0 Yes [id number] 40mg Take 1 Univers e 9-02 tablet by ity of (PROTONIX) 00:00: mouth [place] 40 mg EC 00 daily. Medical tablet Branch dicyclomine 0 Yes [id number] 20mg Take 1 Univers 20 mg 9-02 tablet by ity of tablet 00:00: mouth [place] 00 every 6 Medical (six) Branch hours as needed for Abdominal pain. ondansetron 2020-0 Yes [id number] 4mg Take 1 Univers (ZOFRAN) 4 9-02 tablet by ity of mg tablet 00:00: mouth [place] 00 every 8 Medical (eight) Branch hours as needed for Nausea and Vomiting (N/V). pantoprazol 2020-0 Yes [id number] 40mg Take 1 Univers e 9-02 tablet by ity of (PROTONIX) 00:00: mouth [place] 40 mg EC 00 daily. Medical tablet Branch dicyclomine 0 Yes [id number] 20mg Take 1 Univers 20 mg 9-02 tablet by ity of tablet 00:00: mouth [place] 00 every 6 Medical (six) Branch hours as needed for Abdominal pain. ondansetron 2020-0 Yes [id number] 4mg Take 1 Univers (ZOFRAN) 4 9-02 tablet by ity of mg tablet 00:00: mouth [place] 00 every 8 Medical (eight) Branch hours as needed for Nausea and Vomiting (N/V). ibuprofen 2021-0 Yes [id number] 600mg Take 1 U nivers 600 mg 4-28 tablet by ity of tablet 00:00: mouth [place] 00 every 6 Medical (six) Branch hours as needed for Pain (scale 4-6). ondansetron 2020-0 Yes [id number] 4mg Take 1 Univers (ZOFRAN 4-28 tablet by ity of ODT) 4 mg 00:00: mouth [place] disintegrat 00 every 8 Medic al ing tablet (eight) Branch hours as needed for Nausea and Vomiting (N/V). benzonatate 2020-0 Yes [id number] 200mg Take 1 Univers 200 mg 4-28 capsule by ity of capsule 00:00: mouth 3 [place] 00 (three) Medical times Branch daily as needed for Cough for up to 20 doses. ibuprofen 2020-0 Yes [id number] 600mg Take 1 U nivers 600 mg 4-28 tablet by ity of tablet 00:00: mouth [place] 00 every 6 Medical (six) Branch hours as needed for Pain (scale 4-6). ondansetron 2020-0 Yes [id number] 4mg Take 1 Univers (ZOFRAN 4-28 tablet by ity of ODT) 4 mg 00:00: mouth [place] disintegrat 00 every 8 Medic al ing tablet (eight) Branch hours as needed for Nausea and Vomiting (N/V). benzonatate 2020-0 Yes [id number] 200mg Take 1 Univers 200 mg 4-28 capsule by ity of capsule 00:00: mouth 3 [place] 00 (three) Medical times Branch daily as needed for Cough for up to 20 doses. ibuprofen 2020-0 Yes [id number] 600mg Take 1 U nivers 600 mg 4-28 tablet by ity of tablet 00:00: mouth [place] 00 every 6 Medical (six) Branch hours as needed for Pain (scale 4-6). ondansetron 2020-0 Yes [id number] 4mg Take 1 Univers (ZOFRAN 4-28 tablet by ity of ODT) 4 mg 00:00: mouth [place] disintegrat 00 every 8 Medic al ing tablet (eight) Branch hours as needed for Nausea and Vomiting (N/V). benzonatate 2020-0 Yes [id number] 200mg Take 1 Univers 200 mg 4-28 capsule by ity of capsule 00:00: mouth 3 [place] 00 (three) Medical times Branch daily as needed for Cough for up to 20 doses. ibuprofen Yes [id number] 600mg Take 1 U nivers 600 mg 4-28 tablet by ity of tablet 00:00: mouth [place] 00 every 6 Medical (six) Branch hours as needed for Pain (scale 4-6). ondansetron Yes [id number] 4mg Take 1 Univers (ZOFRAN 4-28 tablet by ity of ODT) 4 mg 00:00: mouth [place] disintegrat 00 every 8 Medic al ing tablet (eight) Branch hours as needed for Nausea and Vomiting (N/V). benzonatate Yes [id number] 200mg Take 1 Univers 200 mg 4-28 capsule by ity of capsule 00:00: mouth 3 (three) Medical times Branch daily as needed for Cough for up to 20 doses. ibuprofen Yes [id number] 600mg Take 1 U nivers 600 mg 4-28 tablet by ity of tablet 00:00: mouth [place] 00 every 6 Medical (six) Branch hours as needed for Pain (scale 4-6). ondansetron Yes [id number] 4mg Take 1 Univers (ZOFRAN 4-28 tablet by ity of ODT) 4 mg 00:00: mouth [place] disintegrat 00 every 8 Medic al ing tablet (eight) Branch hours as needed for Nausea and Vomiting (N/V). benzonatate Yes [id number] 200mg Take 1 Univers 200 mg 4-28 capsule by ity of capsule 00:00: mouth 3 (three) Medical times Branch daily as needed for Cough for up to 20 doses. cephALEXin 2020- No [id number] 500mg Take 1 Univers (KEFLEX) 4-28 05-09 capsule by ity of 500 mg 00:00: 04:59 mouth 3 [place] capsule 00 :00 (three) Medical times Branch daily for 10 days. Nitrofurant 2020- No [id number] 100mg Take 1 Univers oin&Nit. 2-02 02-10 capsule by ity of [place] 00:00: 05:59 mouth 2 [place] as 100 mg 00 :00 (two) Medical capsule times Branch daily for 7 days. cephALEXin Yes Univers 500 mg 6-15 ity of capsule 00:00: 00 Medical Branch cephALEXin 2020-0 Yes Univers 500 mg 6-15 ity of capsule 00:00: [place] 00 Medical Branch cephALEXin 2020-0 Yes Univers 500 mg 6-15 ity of capsule 00:00: [place] 00 Medical Branch cephALEXin 2020-0 Yes Univers 500 mg 6-15 ity of capsule 00:00: [place] 00 Medical Branch cephALEXin 2020-0 Yes Univers 500 mg 6-15 ity of capsule 00:00: [place] 00 Medical Branch cephALEXin 2020-0 Yes Univers 500 mg 6-15 ity of capsule 00:00: [place] 00 Medical Branch cephALEXin 2020-0 Yes Univers 500 mg 6-15 ity of capsule 00:00: [place] 00 Medical Branch cephALEXin 2020-0 Yes Univers 500 mg 6-15 ity of capsule 00:00: [place] 00 Medical Branch cephALEXin 2020-0 Yes Univers 500 mg 6-15 ity of capsule 00:00: [place] 00 Medical Branch cephALEXin 2020-0 Yes Univers 500 mg 6-15 ity of capsule 00:00: [place] 00 Medical Branch cephALEXin 2020-0 Yes Univers 500 mg 6-15 ity of capsule 00:00: [place] 00 Medical Branch cephALEXin 2020-0 Yes Univers 500 mg 6-15 ity of capsule 00:00: [place] 00 Medical Branch Vital Signs Vital Name Observation Time Observation Value Comments Source Systolic blood 2023-09-30 20:25:00 103 mm[Hg] Univer sity of pressure [facility] Diastolic blood 2023-09-30 20:25:00 72 mm[Hg] Unive rsity of pressure [facility] Heart rate 2023-09-30 20:25:00 69 /min [facility] Body temperature 2023-09-30 20:25:00 37.06 Romy [facility] ersity [facility] Respiratory rate 2023-09-30 20:25:00 20 /min [facility] Body height 2023-09-30 20:25:00 157.5 cm [facility] Body weight 2023-09-30 20:25:00 61.009 kg [facility] BMI 2023-09-30 20:25:00 24.60 kg/m2 [facility] Oxygen saturation in 2023-09-30 20:25:00 98 /min [facility] Arterial blood by [facility] Pulse oximetry Branch Systolic blood 2021-07-31 11:00:00 124 mm[Hg] Univer sity of pressure [place] [facility] Diastolic blood 2021-07-31 11:00:00 81 mm[Hg] Unive rsity of pressure [place] [facility] Heart rate 2021-07-31 11:00:00 62 /min Universi ty of [place] [facility] Respiratory rate 2021-07-31 11:00:00 16 /min Univ ersity of [place] [facility] Oxygen saturation in 2021-07-31 11:00:00 100 /min University of Arterial blood by [facility] Pulse oximetry Branch Body temperature 2021-07-31 09:53:00 [...] 99 /min University of Arterial blood by [facility] Pulse oximetry Branch Body weight 2021-03-26 18:58:00 [...] 2021-01-01 00:17:00 18 /min Univ ersity of [facility] Body height 2021-01-01 00:17:00 157.5 cm Universi ty of [facility] Body weight 2021-01-01 00:17:00 53.071 kg Universi ty of [facility] BMI 2021-01-01 00:17:00 21.40 kg/m2 Universi ty of [facility] Oxygen saturation in 2021-01-01 00:17:00 98 /min University of Arterial blood by [facility] Pulse oximetry Branch Systolic blood 2020-05-19 17:07:00 99 mm[Hg] Univer sity of pressure [facility] Diastolic blood 2020-05-19 17:07:00 65 [facility]Hg[facility] 2020-05-19 17:07:00 82 /min Universi ty [facility] Body temperature 2020-05-19 17:07:00 37.06 Romy [facility] Respiratory rate 2020-05-19 17:07:00 20 /min [facility] Body height 2020-05-19 17:07:00 157.5 cm Universi ty of [facility] Body weight 2020-05-19 17:07:00 51.982 kg Universi ty [facility] BMI 2020-05-19 17:07:00 20.96 kg/m2 Universi ty [facility] Oxygen saturation in 2020-05-19 17:07:00 100 /min University of Arterial blood by [facility] Pulse oximetry Branch Procedures Procedure Date / Time Performed Performing Clinician [facility] e ASSIGNMENT OF BENEFITS 2023-09-30 20:19:13 Doctor Unassigned, No [facility] Name [facility] POCT TEST 2021-07-31 10:14:00 Jayant Alvarenga [facility] LIPASE 2021-07-31 10:13:00 Jayant Alvarenga [facility] COMP. METABOLIC PANEL 2021-07-31 10:13:00 Jayant Alvarenga [facility] ([id number]) [facility] CBC WITH DIFF 2021-07-31 10:13:00 Jayant Alvarenga [facility] URINALYSIS 2021-07-31 10:13:00 Jayant Alvarenga [facility] CONSENT/REFUSAL FOR 2021-07-31 09:52:19 Doctor [facility]assigned, [facility] Branch TREATMENT COVID-19 (ID NOW RAPID 2021-03-26 21:02:00 Beau Ly [facility] 2021-03-26 20:36:00 Beau Ly [facility] URINALYSIS 2021-03-26 20:15:00 Beau Ly Jody [facility] CONSENT/REFUSAL FOR 2021-03-26 18:31:47 [facility]igned, [facility] Name [facility] TREATMENT ASSIGNMENT OF BENEFITS 2021-01-10 15:51:48 Doctor Unassigned, No [facility] Name [facility] POCT URINALYSIS 2021-01-01 00:14:00 Kelly Ornelas [facility] POCT TEST 2021-01-01 00:14:00 Kelly Ornelas [facility] Encounters Start End Encounter Admission Attending Care Care Encounter Source Date/Time Date/Time Type Type Clinicians Facility Department ID 2021-09-29 Emergency [facility] [id number] Univers 19:51:03 [facility] 2021-09-28 Emergency [facility] [id number] Univers 15:53:09 [facility] 2023-10-04 2023-10-04 Outpatient Mary GRAMAJO [facility] [id number] Univers 11:30:00 11:30:00 EB duong [facility] 2023-09-30 2023-09-30 Outpatient Mary ALCANTAR [facility] [id number] Univers 15:20:00 15:38:50 JANETH duong [facility] 2023-09-30 2023-09-30 Urgent Janeth Alcantar [facility] [id number] Univers 15:20:00 15:38:50 Care Unknown, Attending HEALTH [id number] [facility] [id number] [place] as ERIKA?BLEA [phone] Il dical [address] MEDICAL OFFICE BUILDING 2023-09-30 2023-09-30 Orders Doctor NUHA [id number] Univers 00:00:00 00:00:00 Only Unassigned, TAMMY [id number] ity of [place] [facility] [id number] [place] as [phone] [facility] 009 Branch 2023-01-30 2023-01-30 Outpatient GC_SWHAOMC_ PRIV PRIV [id number] [facility] 00:00:00 00:00:00 Black_D [id number] Medica l 2023-01-30 2023-01-30 Outpatient GC_SWHAOMC_ PRIV PRIV [id number] [facility] 00:00:00 00:00:00 Black_D [id number] Medica l 2023-01-25 2023-01-25 Outpatient GC_SWHAOMC_ PRIV PRIV [id number] [facility] 00:00:00 00:00:00 Black_D [id number] Medica l 2021-07-31 2021-07-31 Emergency riil, [facility] [id number] Univers 04:42:00 06:56:00 Jayant Painter [id number] ity of [id number] [phone] [facility] 084 Branch 2021-03-26 2021-03-26 Emergency Aliyah, K [facility] [id number] Univers 13:45:00 16:50:00 Jody Painter [id number] i ty of [place] [id number] [phone] [facility] 084 Branch 2021-01-12 2021-01-12 Patient Doctor NUHA [id number] Univers 00:00:00 00:00:00 Secure Msg Unassigned, TAMMY [id number] ity of [place] [facility] [id number] [place] as [phone] [facility] 019 Branch 2021-01-10 2021-01-10 Laboratory Only, Adc Test [facility] 1.2.840. [id number] Univers 09:59:23 10:14:23 Only Mike Smalls [place] [id number] ity of [place] [id number] [place] [facility] [phone] [facility] 353 Branch 2021-01-10 2021-01-10 Outpatient R [facility] [id number] Univers 10:00:00 10:00:00 ity of [facility] 2021-01-10 2021-01-10 Orders Doctor NUHA [id number] Univers 00:00:00 00:00:00 Only Unassigned, TAMMY [id number] [facility] [id number] [place] as [phone] [facility] 009 [place] 2020-12-31 2020-12-31 Urgent Provider, [facility] Urgent Care [facility] [id number] Univers 17:51:40 18:11:40 Care Hybrent [id number] ity of [place] [id number] [place] as Professio [phone] Il dical nal [address] [place] [address] 2020-12-31 2020-12-31 Outpatient R [facility] [id number] Univers 17:40:00 17:40:00 ity of [facility] 2020-12-28 2020-12-28 Laboratory Lab, Adc Fam Pob I [facility] [id number]. [id number] Univers 10:45:48 11:05:48 Only Hybrent [id number] ity of [place] [id number] [place] as Professio [phone] [place] dic[address] Office [address] [facility] 2020-12-28 2020-12-28 Outpatient R [facility] [id number] Univers 10:40:00 10:40:00 ity of [facility] 2020-12-28 2020-12-28 Letter Doctor NUHA [id number] Univers 00:00:00 00:00:00 (Out) Unassigned, TAMMY [id number] ity of [place] [facility] [id number] [place] as [phone] [facility] 044 Branch 2020-05-19 2020-05-19 Urgent Pob1, Acute Care Clinic [facility] 1. [id number] Univers 12:04:55 12:24:55 Care Rika Lesa [facility] [id number] ity of [place] [id number] [place] as Professio [phone] Il dical [address] Office [address] [facility] 2020-05-19 2020-05-19 Outpatient R NATALIIAYesi [facility] [id number] Univers 12:20:00 12:20:00 [facility] Results Test Description Test Time Test Comments Results Result Comments Source LIPASE 2021-07-31 11:27:40 Test Item Value Reference Range Interpretation Comme nts LIPASE (test code = 9476486690) 113 U/L 0-220 Lab Interpretation (test code = 58339-4) Normal [facility] 11:27:40 Test Item Value Reference Range Interpretation Comments LIPASE (test code = 4942437855) 113 U/L 0-220 Lab Interpretation (test code = Normal 20426-0) [facility] ([id number])2021-07-31 11:09:37 Test Item Value Reference Range Interpretation Comments NA (test code = 142 mmol/L 135-145 3847441025) K (test code = 3.6 mmol/L 3.5-5.0 2803827811) CL (test code = 105 mmol/L 98-108 9653476453) CO2 TOTAL (test code = 26 mmol/L 23-31 3113254104) AGAP (test code = 2-16 7787490478) BUN (test code = 6 mg/dL 7-23 L 4659567623) GLUCOSE (test code = 103 mg/dL 70-110 2578199768) CREATININE (test code = 0.59 mg/dL 0.50-1.04 0489644977) TOTAL BILI (test code = 0.7 mg/dL 0.1-1.3 9534647389) CALCIUM (test code = 10.2 mg/dL 8.6-10.6 4713547612) T PROTEIN (test code = 8.3 g/dL 6.3-8.2 H 1897187122) ALBUMIN (test code = 5.0 g/dL 3.5-5.0 0046586534) ALK PHOS (test code = 85 U/L 34-122 8687600562) ALTv (test code = 11 U/L 5-35 1742-6) AST(SGOT) (test code = 22 U/L 13-40 5811910913) eGFR (test code = mL/min/1.73m2 6048242349) ANGELINE (test code = ANGELINE) Association of [...] tests). Lab Interpretation Abnormal (test code = 85470-7) [facility] Metabolic Panel ([id number])2021-07-31 11:09:37 Test Item Value Reference Range Interpretation Comments NA (test code = 142 mmol/L 135-145 4869249952) K (test code = 3.6 mmol/L 3.5-5.0 7952974794) CL (test code = 105 mmol/L 98-108 6464553903) CO2 TOTAL (test code = 26 mmol/L 23-31 8336459794) AGAP (test code = 2-16 7231310338) BUN (test code = 6 mg/dL 7-23 L 4893681648) GLUCOSE (test code = 103 mg/dL 70-110 5090387162) CREATININE (test code = 0.59 mg/dL 0.50-1.04 6289336670) TOTAL BILI (test code = 0.7 mg/dL 0.1-1.0 0292183623) CALCIUM (test code = 10.2 mg/dL 8.6-10.6 2033628764) T PROTEIN (test code = 8.3 g/dL 6.3-8.2 H 5068195312) ALBUMIN (test code = 5.0 g/dL 3.5-5.0 8273555904) ALK PHOS (test code = 85 U/L 34-122 0235785834) ALTv (test code = 11 U/L 5-35 1742-6) AST(SGOT) (test code = 22 U/L 13-40 8620588538) eGFR (test code = mL/min/1.73m2 7210000790) ANGELINE (test code = ANGELINE) Association of [...] tests). Lab Interpretation Abnormal (test code = 80867-7) [facility] 11:09:16 Test Item Value Reference Range Interpretation Comments APPEARANCE (test code = Cloudy Clear A 2269020097) COLOR (test code = Yellow Yellow 0488568773) PH (test code = 4.8-8.0 0226277963) SP GRAVITY (test code = 1.003-1.030 7364317554) GLU U QUAL (test code = Normal Normal 7242692747) BLOOD (test code = 1+ Negative A 0189954882) KETONES (test code = Negative Negative 4431679390) PROTEIN (test code = Negative Negative 2887-8) UROBILIN (test code = Normal Normal 8907701946) BILIRUBIN (test code = Negative Negative 2817654443) NITRITE (test code = Negative Negative 6170468733) LEUK ISIDORO (test code = 500/uL Negative A 3524715260) RBC/HPF (test code = See_Comment H [Autom ated message] 5786164285) The system [employer] generated this result transmitted ref erence range: 0 - 3 HP F. The reference range was not used to int erpret this result as normal/abnormal . WBC/HPF (test code = See_Comment H [Autom ated message] 7056707170) The system [employer] generated this result transmitted ref erence range: 0 - 5 HP F. The reference range was not used to int erpret this result as normal/abnormal . BACTERIA (test code = Many Negative A 8605220060) MUCOUS (test code = Slight Negative LPF A 7295030669) SQ EPITH (test code = HPF 3901398948) Lab Interpretation (test Abnormal code = 21863-3) [facility] Test Item Value Reference Range Interpretation Comments APPEARANCE (test code = Cloudy Clear A 1118017295) COLOR (test code = Yellow Yellow 1713171667) PH (test code = 4.8-8.0 0332595017) SP GRAVITY (test code = 1.003-1.030 1020771961) GLU U QUAL (test code = Normal Normal 3647355670) BLOOD (test code = 1+ Negative A 3105992977) KETONES (test code = Negative Negative 6311161867) PROTEIN (test code = Negative Negative 2887-8) UROBILIN (test code = Normal Normal 9100871288) BILIRUBIN (test code = Negative Negative 8711474249) NITRITE (test code = Negative Negative 9754111308) LEUK ISIDORO (test code = 500/uL Negative A 2185749292) RBC/HPF (test code = See_Comment H [Autom ated message] 6618493790) The system [employer] generated this result transmitted ref erence range: 0 - 3 HP F. The reference range was not used to int erpret this result as normal/abnormal . WBC/HPF (test code = See_Comment H [Autom ated message] 2083688273) The system [employer] generated this result transmitted ref erence range: 0 - 5 HP F. The reference range was not used to int erpret this result as normal/abnormal . BACTERIA (test code = Many Negative A 2149345025) MUCOUS (test code = Slight Negative LPF A 6165318274) SQ EPITH (test code = HPF 5440052449) Lab Interpretation (test Abnormal code = 58871-8) [facility] [id number] 10:56:56 Test Item Value Reference Range Interpretation Comments WBC (test code = See_Comment H [Automated 4890-2) message] The sy stem which generated this result transmitted reference range : 4.30 - 11.10 10*3/?L. The reference range was not used to interpret this result as normal/abnormal . RBC (test code = See_Comment [Automated 019-8) message] The sy stem which generated this [...] (test code = 36.8 fL 39.0-49.9 L 73651-1) RDW-CV (test code = 11.5 % 12.0-15.5 L 788-0) PLT (test code = See_Comment [Automated 777-3) message] The sy stem which generated this result transmitted reference range : 166 - 358 10*3/ ?L. The reference r shankar was not used to interpret this result as normal/abnormal . MPV (test code = 10.2 fL 9.5-12.9 80559-8) NRBC/100 WBC (test See_Comment [Automat ed code = 3056098788) message] The system which generated this result transmitted reference range : 0.0 - 10.0 /100 WBCs. The refer ence range was not u sed to interpret th is result as normal/abnormal . NRBC x10^3 (test code <0.01 See_Comment [Auto mated = 1041453725) message] The s ystem which generated this result transmitted reference range : 10*3/?L. The reference range was not used to interpret this result as normal/abnormal . GRAN MAT (NEUT) % 73.1 % (test code = 770-8) IMM GRAN % (test code 0.40 % = 5007171236) LYMPH % (test code = 17.0 % 736-9) MONO % (test code = 6.8 % 5905-5) EOS % (test code = 2.3 % 713-8) BASO % (test code = 0.4 % 706-2) GRAN MAT x10^3(ANC) 8.72 10*3/uL 1.88-7.09 H (test code = 1470421487) IMM GRAN x10^3 (test 0.05 10*3/uL 0.00-0.06 code = 5556563519) LYMPH x10^3 (test code 2.03 10*3/uL 1.32-3.29 = 731-0) MONO x10^3 (test code 0.81 10*3/uL 0.33-0.92 = 742-7) EOS x10^3 (test code = 0.28 10*3/uL 0.03-0.39 711-2) BASO x10^3 (test code 0.05 10*3/uL 0.01-0.07 = 704-7) Lab Interpretation Abnormal (test code = 17377-3) [facility] with [id number] 10:56:56 Test Item Value Reference Range Interpretation Comments WBC (test code = See_Comment H [Automated 9690-2) message] The sy stem which generated this result transmitted reference range : 4.30 - 11.10 10*3/?L. The reference range was not used to interpret this result as normal/abnormal . RBC (test code = See_Comment [Automated 349-8) message] The sy stem which generated this [...] (test code = 36.8 fL 39.0-49.9 L 05840-5) RDW-CV (test code = 11.5 % 12.0-15.5 L 788-0) PLT (test code = See_Comment [Automated 457-3) message] The sy stem which generated this result transmitted reference range : 166 - 358 10*3/ ?L. The reference r shankar was not used to interpret this result as normal/abnormal . MPV (test code = 10.2 fL 9.5-12.9 69270-2) NRBC/100 WBC (test See_Comment [Automat ed code = 9560754509) message] The system which generated this result transmitted reference range : 0.0 - 10.0 /100 WBCs. The refer ence range was not u sed to interpret th is result as normal/abnormal . NRBC x10^3 (test code <0.01 See_Comment [Auto mated = 0512599030) message] The s ystem which generated this result transmitted reference range : 10*3/?L. The reference range was not used to interpret this result as normal/abnormal . GRAN MAT (NEUT) % 73.1 % (test code = 770-8) IMM GRAN % (test code 0.40 % = 9142816561) LYMPH % (test code = 17.0 % 736-9) MONO % (test code = 6.8 % 5905-5) EOS % (test code = 2.3 % 713-8) BASO % (test code = 0.4 % 706-2) GRAN MAT x10^3(ANC) 8.72 10*3/uL 1.88-7.09 H (test code = 6740972740) IMM GRAN x10^3 (test 0.05 10*3/uL 0.00-0.06 code = 9203574024) LYMPH x10^3 (test code 2.03 10*3/uL 1.32-3.29 = 731-0) MONO x10^3 (test code 0.81 10*3/uL 0.33-0.92 = 742-7) EOS x10^3 (test code = 0.28 10*3/uL 0.03-0.39 711-2) BASO x10^3 (test code 0.05 10*3/uL 0.01-0.07 = 704-7) Lab Interpretation Abnormal (test code = 42078-5) [facility] [id number] 10:14:00 Test Item Value Reference Range Interpretation Comments POCT PREG (test code = 1605) negative On board controls acceptable with yes C Line (test code = 3574) POCT PREG LOT # (test code = 3575) [id number] POCT PREG TEST DATE (test 11/28/2022 code = 3576) Lab Interpretation (test code = Normal 16366-8) [facility] [id number] 10:14:00 Test Item Value Reference Range Interpretation Comments POCT PREG (test code = 1605) negative On board controls acceptable with yes C Line (test code = 3574) POCT PREG LOT # (test code = 3575) [id number] POCT PREG TEST DATE (test 11/28/2022 code = 3576) Lab Interpretation (test code = Normal 69144-3) [facility]ID [facility])2021-03-26 21:45:31 Test Item Value Reference Range Interpretation Comments SARS-CoV-2 Rapid ID NOW Not Detected Not Detected (test code = 48744-8) ANGELINE (test code = ANGELINE) ID NOW COVID-19 Assay is an isothermal nucleic acid amplification test intended for the qualitative detection of nucleic acid from SARS-CoV-2 viral RNA in nasopharyngeal (BABY DOCTOR) specimens. It is used under Emergency Use [...] indicated. Lab Interpretation Normal (test code = 99342-7) [facility] 20:59:37 Test Item Value Reference Range Interpretation Comments APPEARANCE (test code = Clear Clear 7559149261) COLOR (test code = Straw Yellow A 6842868231) PH (test code = 4.8-8.0 5341116693) SP GRAVITY (test code = 1.003-1.030 1196588259) GLU U QUAL (test code = Normal Normal 4900033157) BLOOD (test code = Negative Negative 9547487355) KETONES (test code = Negative Negative 0236414711) PROTEIN (test code = Negative Negative 2887-8) UROBILIN (test code = Normal Normal 7646847003) BILIRUBIN (test code = Negative Negative 8926174799) NITRITE (test code = Negative Negative 5807008799) LEUK ISIDORO (test code = 25/uL Negative A 5625437056) RBC/HPF (test code = See_Comment [Autom ated message] 5623230671) The system [employer] generated this result transmitted ref erence range: 0 - 3 HP F. The reference range was not used to int erpret this result as normal/abnormal . WBC/HPF (test code = See_Comment [Autom ated message] 4390552716) The system [employer] generated this result transmitted ref erence range: 0 - 5 HP F. The reference range was not used to int erpret this result as normal/abnormal . BACTERIA (test code = Many Negative A 4250277971) AMORPHOUS (test code = Rare Rare HPF 7278641877) SQ EPITH (test code = <1 HPF 0395337871) Lab Interpretation (test Abnormal code = 95495-3) [facility] [id number] 20:36:00 Test Item Value Reference Range Interpretation Comments POCT PREG (test code = 1605) neg On board controls acceptable with yes C Line (test code = 3574) POCT PREG LOT # (test code = 3575) [id number] POCT PREG TEST DATE (test 10/28/2022 code = 3576) Lab Interpretation (test code = Normal 97426-7) [facility] URINALYSIS W SPECIFIC [id number] 00:25:00 Test Item Value Reference Range Interpretation [...] (test code = Negative Negative - Negative 325) POCT U UROBILI (test code = 8 mg/dl 0.2-1 3259) POCT U BILI (test code = 2+ Negative - Negative 326) POCT U BLD (test code = 3257) Trace Negative - Negative POCT U COLOR (test code = orange 3266) POCT U APPEAR (test code = cloudy 326) Lab Interpretation (test code Abnormal = 68229-9) [facility] [id number] 00:25:00 Test Item Value Reference Range Interpretation Comments POCT PREG (test code = 1605) Negative On board controls acceptable with C Yes Line (test code = 3574) POCT PREG LOT # (test code = 3575) POCT PREG TEST DATE (test code = 3576) Lab Interpretation (test code = Normal 94844-0) [facility]"
[2023-10-27 19:04] LABS: Specific Gravity 1.008 (1.005-1.030)
[2023-10-27 19:06] LABS: Absolute Lymphocytes (CBC) 1.4 K/uL (0.7-4.9); Hematocrit 40.7 % (36.0-45.0); Lymphocytes % 12.7 % (15.3-44.8); MCV 89.2 fL (80-100); MPV 7.8 fL (7.6-11.3); Platelets 298 thou/uL (152-406); RBC Red Blood Cell Count 4.56 M/uL (3.86-4.86); Specific Gravity 1.008 (1.005-1.030); Urine Bacteria <20 /HPF (<20); Urine Bilirubin NEGATIVE (Negative); Urine Blood Negative (Negative); Urine Clarity Turbid (Clear); Urine Color Colorless (Yellow); Urine Glucose NEGATIVE (Negative); Urine Mucus Slight /HPF (None Seen); Urine Protein NEGATIVE (Negative); Urine RBC <5 /HPF (None Seen); Urine Urobilinogen Normal (Normal)
[2023-10-27 19:21] LABS: Albumin 4.1 g/dL (3.4-5.0); Bilirubin Total 0.6 mg/dL (0.2-1.0); Potassium 3.5 mEq/L (3.5-5.1)
--- NOTE | 2023-10-27 20:04 | RAD REPORT ---
EXAM DESCRIPTION: CT - Abdomen Pelvis W Contrast - 10/27/2023 7:26 pm CLINICAL HISTORY: RLQ PAIN COMPARISON: No comparisons TECHNIQUE: Thin cut axial CT imaging of the abdomen and pelvis was performed following intravenous a dministration of 95 mL Isovue 370. Multiplanar reformats were generated and reviewed. All CT scans are performed using dose optimization technique as appropriate and may include automated exposure control or mA/KV adjustment according to patient size. FINDINGS: No suspicious findings in the lung bases. The liver, spleen, adrenal glands, and pancreas show no suspicious findings. Gallbladder and biliary tree are also without suspicious finding. Symmetric renal function is seen with no hydronephrosis or suspicious renal mass. No dilated bowel loops or bowel wall thickening. Appendix is unremarkable. No free air, free fluid or inflammatory stranding. No hernia, mass or bulky lymphadenopathy. Small collapsed marginally enhanci ng left adnexal cyst or follicle, measuring 1.6 cm. This is likely physiologic. The urinary bladder i s without significant finding. No suspicious bony findings. IMPRESSION: No acute intra-abdominal process.
--- NOTE | 2023-10-27 20:45 | EDPHYS ---
Physician Documentation [facility] Name: Jannette Wilkes Age: 23 yrs Sex: Female : 2000 Arrival Date: 10/27/2023 Time: 17:59 Bed DIS1 Private MD: ED Physician Rome Anne HPI: 10/27 18:45 This 23 yrs old Female presents to ER via Ambulatory with complaints of Abdominal Pain. cp 18:45 The patient presents with abdominal pain right lower quadrant. Onset: The cp symptoms/episode began/occurred 4 day(s) ago. 18:45 Associated signs and symptoms: Pertinent negatives: anorexia, constipation, diarrhea, cp dysuria, fever, hematuria, vaginal discharge, vomiting. The symptoms are described as waxing/waning. 18:45 Severity of pain: in the emergency department the pain is unchanged despite home cp interventions. 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 - Social history:: Smoking status: Reported history of juuling and/or vaping. ROS: 18:50 Constitutional: Negative for body aches, chills, fever, poor PO intake, cp 18:50 Eyes: Negative for injury, pain, redness, and discharge, cp 18:50 ENT: Negative for drainage from ear(s), ear pain, sore throat, difficulty swallowing, difficulty handling secretions, 18:50 Cardiovascular: Negative for chest pain, palpitations, 18:50 Respiratory: Negative for cough, shortness of breath, wheezing, 18:50 Abdomen/GI: Positive for abdominal pain, of the right lower quadrant, Negative for vomiting, diarrhea, constipation, anorexia, 18:50 Back: Negative for pain at rest, pain with movement, 18:50 : Negative for urinary symptoms, hematuria, vaginal bleeding, vaginal discharge, 18:50 All other systems are negative, Exam: 18:55 Constitutional: The patient appears in no acute distress, alert, awake, non-toxic, well cp developed, well nourished, uncomfortable, 18:55 Head/Face: Normocephalic, atraumatic. cp 18:55 Eyes: Periorbital structures: appear normal, Conjunctiva: normal, no exudate, no injection, Sclera: no appreciated abnormality, Lids and lashes: appear normal, bilaterally, 18:55 ENT: External ear(s): are unremarkable, Nose: is normal, Mouth: Lips: moist, Oral mucosa: pink and intact, moist, Posterior pharynx: is normal, airway is patent, no erythema, no exudate, 18:55 Chest/axilla: Inspection: normal, 18:55 Cardiovascular: Rate: normal, Rhythm: regular, 18:55 Respiratory: the patient does not display signs of respiratory distress, Respirations: normal, no use of accessory muscles, no retractions, labored breathing, is not present, Breath sounds: are clear throughout, no decreased breath sounds, no stridor, no wheezing, 18:55 Abdomen/GI: Inspection: abdomen appears normal, Bowel sounds: active, Palpation: soft, in all quadrants, mild abdominal tenderness, in the right lower quadrant, rebound tenderness, is not appreciated, involuntary guarding, is not appreciated, 18:55 Back: CVA tenderness, is absent, 18:55 Neuro: Gait: is steady, Vital Signs: 18:34 BP 123 / 70; Pulse 97; Resp 16 S; Temp 99(TE); Pulse Ox 100% on R/A; Weight 63.5 kg aa5 (R); Height 5 ft. 2 in. (R); 21:12 BP 121 / 84; Pulse 88; Resp 17 S; Pulse Ox 100% on R/A; lg3 18:34 Body Mass Index 25.61 (63.50 kg, 157.48 cm) aa5 MDM: 18:31 Patient medically screened. cp 19:00 Differential diagnosis: appendicitis, Ectopic , non-specific abd pain, Ovarian cp Torsion, Pelvic Inflammatory Disease, Pyelonephritis, Ureterolithiasis, urinary tract infection. 20:44 Data reviewed: vital signs, nurses notes, lab test result(s), radiologic studies, CT cp scan. 20:44 I considered the following discharge prescriptions or medication management in the emergency department Medications were administered in the Emergency Department. See MAR. Counseling: I had a detailed discussion with the patient and/or guardian regarding the historical points, exam findings, and any diagnostic results supporting the discharge/admit diagnosis, lab results, radiology results, to return to the emergency department if symptoms worsen or persist or if there are any questions or concerns that arise at home. Special discussion: Based on the patient's Hx, exam, and Dx evaluation, there is no indication for emergent surgery or inpatient Tx. It is understood by the patient/guardian that if the Sx's persist or worsen they need to return immediately for re-evaluation. 10/27 18:34 Order name: CBC with Diff; Complete Time: 20:04 10/27 20:05 Interpretation: Normal except: ANGEL% 78.3; LYM% 12.7; NEUT A 8.4. 10/27 18:34 Order name: CMP; Complete Time: 20:04 10/27 20:05 Interpretation: Normal except: GLUC 107; AST 13; GLOB 3.9. 10/27 18:34 Order name: Lipase; Complete Time: 20:04 10/27 18:34 Order name: Test, Urine; Complete Time: 20:04 10/27 18:34 Order name: Urinalysis w/ reflexes; Complete Time: 20:04 10/27 20:39 Interpretation: Normal except: [facility] Turbid; UESTR 75. 10/27 18:34 Order name: CT Abd/Pelvis - IV Contrast Only; Complete Time: 20:05 10/27 20:05 Interpretation: Report reviewed. 10/27 18:34 Order name: IV Saline Lock; Complete Time: 21:15 10/27 18:34 Order name: Labs collected and sent; Complete Time: 18:54 cp Administered Medications: 21:11 Drug: Ondansetron IVP 4 mg IVP once; over 2 minutes Route: IVP; Site: left antecubital; lg3 21:12 Follow up: Response: No adverse reaction lg3 21:12 Drug: NS 0.9% IV 1000 ml IV at 1 bolus Per protocol; 1000 mL bolus Route: IV; Rate: 1 lg3 bolus; Site: left antecubital; 21:16 Follow up: IV Status: Completed infusion; IV Intake: 1000ml lg3 21:12 Drug: TORadol - Ketorolac IVP 15 mg IVP once Route: IVP; Site: left antecubital; lg3 21:12 Follow up: Response: No adverse reaction lg3 Disposition Summary: 10/27/23 20:44 Discharge Ordered Notes: Location: Home cp Problem: new cp Symptoms: have improved cp Condition: Stable cp Diagnosis - Lower abdominal pain, unspecified cp Followup: cp - With: Private Physician - When: 2 - 3 days - Reason: Worsening of condition Discharge Instructions: - Discharge Summary Sheet cp - Abdominal Pain, Adult cp Forms: - Medication Reconciliation Form cp - Thank You Letter cp - Antibiotic Education cp - Prescription Opioid Use cp - Patient Portal Instructions cp - Leadership Thank You Letter cp Prescriptions: - Ibuprofen 800 mg Oral Tablet - take 1 tablet ORAL route every 8 hours As needed take with food; 30 tablet; cp Refills: 0, Product Selection Permitted Signatures: Dispatcher [employer] Marilyn Rodriguez, RN RN aa5 Rome Aguilar PA PA cp Gibson, Lacie, RN RN lg3
--- NOTE | 2023-10-27 20:45 | ER ---
Nurse's Notes [facility] Name: Jannette Wilkes Age: 23 yrs Sex: Female : 2000 Arrival Date: 10/27/2023 Time: 17:59 Bed DIS1 Private MD: Diagnosis: Lower abdominal pain, unspecified Presentation: 10/27 18:34 Chief complaint: Patient states: RLQ x 4 days, worse today, denies aa5 nausea/vomiting/diarrhea. Coronavirus screen: At this time, the client does not indicate any symptoms associated with coronavirus-19. Ebola Screen: Patient denies travel to an Ebola-affected area in the 21 days before illness onset. Initial Sepsis Screen: Does the patient meet any 2 criteria? No. Patient's initial sepsis screen is negative. Does the patient have a suspected source of infection? No. Patient's initial sepsis screen is negative. Risk Assessment: Do you want to hurt yourself or someone else? Patient reports no desire to harm self or others. Onset of symptoms was September 2023. 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 - Social history:: Smoking status: Reported history of juuling and/or vaping. Screenin:12 [facility] ED Fall Risk Assessment (Adult) History of falling in the last 3 months, lg3 including since admission No falls in past 3 months (0 pts). Abuse screen: Denies threats or abuse. Denies injuries from another. Nutritional screening: No deficits noted. Tuberculosis screening: No symptoms or risk factors identified. Assessment: 21:12 General: Appears in no apparent distress. comfortable, Behavior is calm, cooperative. lg3 Pain: Complains of pain in right lower quadrant. Neuro: No deficits noted. Ralph Agitation-Sedation Scale (RASS): 0 - Alert and Calm Level of Consciousness is awake, alert, obeys commands, Oriented to person, place, time, situation. Cardiovascular: No deficits noted. Denies chest pain, shortness of breath, Capillary refill < 3 seconds Clubbing of nail beds is absent JVD is absent Patient's skin is warm and dry. Respiratory: No deficits noted. Airway is patent Respiratory effort is even, unlabored, Respiratory pattern is regular, symmetrical. GI: No deficits noted. Abdomen is round non-distended, Bowel sounds present X 4 quads. Abd is soft and non tender X 4 quads. Reports lower abdominal pain, cramping. : No deficits noted. No signs and/or symptoms were reported regarding the genitourinary system. EENT: No deficits noted. No signs and/or symptoms were reported regarding the EENT system. Derm: No deficits noted. No signs and/or symptoms reported regarding the dermatologic system. Skin is intact, is healthy with good turgor, Skin is dry, Skin is normal, Skin temperature is warm. Musculoskeletal: No deficits noted. No signs and/or symptoms reported regarding the musculoskeletal system. Circulation, motion, and sensation intact. Range of motion: intact in all extremities. Vital Signs: 18:34 BP 123 / 70; Pulse 97; Resp 16 S; Temp 99(TE); Pulse Ox 100% on R/A; Weight 63.5 kg aa5 (R); Height 5 ft. 2 in. (R); 21:12 BP 121 / 84; Pulse 88; Resp 17 S; Pulse Ox 100% on R/A; lg3 18:34 Body Mass Index 25.61 (63.50 kg, 157.48 cm) aa5 ED Course: 18:04 Patient arrived in ED. im 18:13 Rome Aguilar PA is PHCP. cp 18:13 Rome Anne MD is Attending Physician. cp 18:34 Triage completed. aa5 18:34 Arm band placed on. aa5 18:54 CBC with Diff Sent. bc6 18:54 CMP Sent. bc6 18:54 Lipase Sent. bc6 18:54 Test, Urine Sent. bc6 18:54 Urinalysis w/ reflexes Sent. bc6 18:57 Missed attempt(s): 22 gauge in right antecubital area. bc6 19:28 CT Abd/Pelvis - IV Contrast Only In Process Unspecified. EDMS 21:12 Patient has correct armband on for positive identification. lg3 21:12 No provider procedures requiring assistance completed. IV discontinued. lg3 Administered Medications: 21:11 Drug: Ondansetron IVP 4 mg IVP once; over 2 minutes Route: IVP; Site: left antecubital; lg3 21:12 Follow up: Response: No adverse reaction lg3 21:12 Drug: NS 0.9% IV 1000 ml IV at 1 bolus Per protocol; 1000 mL bolus Route: IV; Rate: 1 lg3 bolus; Site: left antecubital; 21:16 Follow up: IV Status: Completed infusion; IV Intake: 1000ml lg3 21:12 Drug: TORadol - Ketorolac IVP 15 mg IVP once Route: IVP; Site: left antecubital; lg3 21:12 Follow up: Response: No adverse reaction lg3 Medication: 21:12 VIS not applicable for this client. lg3 Intake: 21:16 IV: 1000ml; Total: 1000ml. lg3 Outcome: 20:44 Discharge ordered by MD. cp 21:12 Discharged to home ambulatory, lg3 21:12 Condition: stable 21:12 Discharge instructions given to patient, Instructed on discharge instructions, follow up and referral plans. medication usage, Demonstrated understanding of instructions, follow-up care, medications, Prescriptions given X 1, 21:15 Patient left the ED. lg3 Signatures: Dispatcher [employer] EDMarilyn Valdes, RN RN aa5 Rome Aguilar PA PA Ana Landers, RN RN lg3 [place] 6 Radhika Rosado
[2023-10-27] MEDS ORDERED: NA CHLORIDE 0.9% 1,000 ML ONE (21:11)
[2023-10-27] MEDS ORDERED: KETOROLAC 30 MG/ML INJ ONE (21:11)
[2023-10-27] MEDS ORDERED: ONDANSETRON 4 MG/2 ML VIAL ONE (21:11)
[2023-10-27 21:21] VITALS: TEMP 99; O2SAT 100
[2023-10-27 21:22] VITALS: BP 121/84
== END 2023-10-27 21:15 | disposition home or self-care (01) ==
LOC: ER 17:59
DX: R10.31 Right lower quadrant pain (principal)
CPT/HCPCS: 85025; 81001; 36415; 81025; 83690; 80053; 74177; 96375; 96374; 99284; Q9967; J2405; J7030

== ENCOUNTER 2024-05-24 10:25 | Emergency (ER) | payer BC ==
--- OUTSIDE RECORDS SUMMARY | 2024-05-24 10:29 | XMS REPORT | Continuity of Care Document ---
Author Name Unknown Address [address] [place] [address]. [address] [place] [address] [facility] thconnect Address [address] [place] [address]. [address] [place] [address] Care Team Providers Care Base Remover Name Role Phone [facility] Primary Care Physician Unavailab VIET Ball Attending Clinician VIET Ko Attending Clinician Malik Hartley , February Attending Clinician Unavailab EB Hughes Attending Clinician Unavailable JANETH GALLAGHER Attending Clinician Unavailable Janeth Gallagher PA-C Attending Clinician [phone] Unknown, Attending Attending Clinician Unavailab le Doctor Unassigned, [place] Attending Clinician U navailable MONCHO_MARY KATEC_Black_D Attending Clinician Unavailab Jayant Baumann MD Attending Clinician [phone] Aliyah PACBeau Attending Clinician [phone] Only, Adc Test Attending Clinician Unavailable Mike Smalls MD Attending Clinician [phone] Provider, [facility] Attending Clinician Un available Kelly Best Attending Clinician [phone] Lab, Adc Fam Pob I Attending Clinician Unavailab vasiliy Valverdeb1, [facility] Attending Clinician Unamatias ailLesa Cannon Attending Clinician [phone] LESA MELÉNDEZ Attending Clinician Unavailable [facility]_Black_D Admitting Clinician Unavailab le Payers Payer Name Policy Type Policy Number Effective Date Expirati on Date Source [facility] [id number] 2020 00:00:00 [place] [id number] 2020 00:00:00 Problems Condition Name Condition Details Condition Category Status Onset Date Resolution Date Last Treatment Date Treating Clinician Comments Source No known active problems No known active problems Disease [facility] Allergies, Adverse Reactions, Alerts Allergy Name Allergy Type Status Severity Reaction(s) Onset Date Inactive Date Treating Clinician Comments Source NO KNOWN ALLERGIE S Drug Class Active [facility] Social History Social Habit Start Date Stop Date Quantity Comments Source History of tobacco use 2016-01-08 00:00:00 Cigarette Smoker [facility] of Social function 2024-04-07 00:00:00 2024-04-07 00:00:00 [facility] Cigarette pack-years 2024-04-07 00:00:00 2024-04-07 00:00:00 [facility] Alcoholic beverage intake 2024-04-07 00:00:00 2024-04-07 00:00:00 Current drinker of alcohol (finding) [facility] Cigarettes smoked current (pack per day) - Reported 2024-04-07 00:00:00 2024-04-07 00:00:00 [facility] Tobacco use and exposure 2024-04-07 00:00:00 2024-04-07 00:00:00 Smokeless tobacco non-user [facility] Alcohol Comment 2024-01-13 00:00:00 2024-01-13 00:00:00 rarely [facility] Alcohol intake 2024-01-13 00:00:00 2024-01-13 00:00:00 Current drinker of alcohol (finding) [facility] Exposure to SARS-CoV-2 (event) 2021-07-01 00:00:00 2021-07-31 04:50:00 Not sure [facility] History SDOH Alcohol Frequency 2021-01-01 00:00:00 2021-01-01 00:00:00 2 [facility] History SDOH Alcohol Std Drinks 2021-01-01 00:00:00 2021-01-01 00:00:00 1 [facility] History SDOH Alcohol Binge 2021-01-01 00:00:00 2021-01-01 00:00:00 3 [facility] Sex assigned at 2002 00:00:00 2000 00:00:00 [facility] Smoking Status Start Date Stop Date Source Ex-smoker 2024-04-07 00:00:00 2024-04-07 [facility] 2020-12-31 00:00:00 [facility] Never smoker [facility] Medications Ordered Medication Name Filled Medication Name Start Date Stop Date Current Medication? Ordering Clinician Indication Dosage Frequency Signature (SIG) Comments Components Source ketorolac (TORADOL) injection 15 mg 07-31 12:00: 00 07-31 10:58 :00 No 15mg 15 mg, Slow IV Push, ONCE, 1 dose, Holly 07/31/21 at 0700, Routine
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) oral suspension 15 mL 07-31 12:00: 00 07-31 10:57 :00 No 15mL 15 mL, Oral, ONCE, 1 dose, Holly 07/31/21 at 0700, Routine [facility] pantoprazol e (PROTONIX) 40 mg EC tablet 07-31 00:00: 00 01-13 00:00 :00 No [id number] 40mg Take 1 tablet by mouth daily. [facility] dicyclomine 20 mg tablet 07-31 00:00: 00 01-13 00:00 :00 No [id number] 20mg Take 1 tablet by mouth every 6 (six) hours as needed for Abdominal pain. [facility] ondansetron (ZOFRAN) 4 mg tablet 9- 00:00: 00 01-13 00:00 :00 No [id number] 4mg Take 1 tablet by mouth every 8 (eight) hours as needed for Nausea and Vomiting (N/V). [facility] ibuprofen 600 mg tablet 03-26 00:00: 00 01-13 00:00 :00 No [id number] 600mg Take 1 tablet by mouth every 6 (six) hours as needed for Pain (scale 4-6). [facility] ondansetron (ZOFRAN ODT) 4 mg disintegrat ing tablet 03-26 00:00: 00 01-13 00:00 :00 No [id number] 4mg Take 1 tablet by mouth every 8 (eight) hours as needed for Nausea and Vomiting (N/V). [facility] benzonatate 200 mg capsule 03-26 00:00: 00 01-13 00:00 :00 No [id number] 200mg Take 1 capsule by mouth 3 (three) times daily as needed for Cough for up to 20 doses. [facility] cephALEXin (KEFLEX) 500 mg capsule 03-26 00:00: 00 04-06 04:59 :00 No [id number] 500mg Take 1 capsule by mouth 3 (three) times daily for 10 days. [facility] Nitrofurant oin&Nit. Macrocryst 100 mg capsule 2- 00:00: 00 01-08 05:59 :00 No [id number] 100mg Take 1 capsule by mouth 2 (two) times daily for 7 days. [facility] cephALEXin 500 mg capsule 05-13 00:00: 00 01-13 00:00 :00 No [facility] Immunizations Ordered Immunization Name Filled Immunization Name Date Status Comments Source Influenza Virus Vaccine Unknown Completed [facility] Influenza Virus Vaccine Unknown Completed [facility] Vital Signs Vital Name Observation Time Observation Value Comments S abigail Systolic blood pressure 2024-04-07 14:14:00 109 mm[Hg] [facility] Diastolic blood pressure 2024-04-07 14:14:00 69 mm[Hg] [facility] Heart rate 2024-04-07 14:14:00 75 /min [facility] Body temperature 2024-04-07 14:14:00 36.5 Romy [facility] Body height 2024-04-07 14:14:00 157.5 cm [facility] Body weight 2024-04-07 14:14:00 61.326 kg [facility] BMI 2024-04-07 14:14:00 24.73 kg/m2 [facility] Systolic blood pressure 2024-01-13 16:43:00 130 mm[Hg] [facility] Diastolic blood pressure 2024-01-13 16:43:00 78 mm[Hg] [facility] Heart rate 2024-01-13 16:43:00 74 /min [facility] Body temperature 2024-01-13 16:43:00 36.72 Romy [facility] Respiratory rate 2024-01-13 16:43:00 16 /min [facility] Body height 2024-01-13 16:43:00 157.5 cm [facility] Body weight 2024-01-13 16:43:00 60.827 kg [facility] BMI 2024-01-13 16:43:00 24.53 kg/m2 [facility] Systolic blood pressure 2023-09-30 20:25:00 103 mm[Hg] [facility] Diastolic blood pressure 2023-09-30 20:25:00 72 mm[Hg] [facility] Heart rate 2023-09-30 20:25:00 69 /min [facility] Body temperature 2023-09-30 20:25:00 37.06 Romy [facility] Respiratory rate 2023-09-30 20:25:00 20 /min [facility] Body height 2023-09-30 20:25:00 157.5 cm [facility] Body weight 2023-09-30 20:25:00 61.009 kg [facility] BMI 2023-09-30 20:25:00 24.60 kg/m2 [facility] Oxygen saturation in Arterial blood by Pulse oximetry 2023-09-30 20:25:00 98 /min [facility] Systolic blood pressure 2021-07-31 11:00:00 124 mm[Hg] [facility] Diastolic blood pressure 2021-07-31 11:00:00 81 mm[Hg] [facility] Heart rate 2021-07-31 11:00:00 62 /min [facility] Respiratory rate 2021-07-31 11:00:00 16 /min [facility] Oxygen saturation in Arterial blood by Pulse oximetry 2021-07-31 11:00:00 100 /min [facility] Body temperature 2021-07-31 09:53:00 36.61 Romy [facility] Body height 2021-07-31 09:53:00 157.5 cm [facility] Body weight 2021-07-31 09:53:00 47.628 kg [facility] BMI 2021-07-31 09:53:00 19.20 kg/m2 [facility] Systolic blood pressure 2021-03-26 21:06:55 101 mm[Hg] [facility] Diastolic blood pressure 2021-03-26 21:06:55 66 mm[Hg] [facility] Heart rate 2021-03-26 21:06:55 71 /min [facility] Body temperature 2021-03-26 21:06:55 36.83 Romy [facility] Respiratory rate 2021-03-26 21:06:55 16 /min [facility] Oxygen saturation in Arterial blood by Pulse oximetry 2021-03-26 21:06:55 99 /min [facility] Body weight 2021-03-26 18:58:00 53.071 kg [facility] Systolic blood pressure 2021-01-01 00:17:00 127 mm[Hg] [facility] Diastolic blood pressure 2021-01-01 00:17:00 80 mm[Hg] [facility] Heart rate 2021-01-01 00:17:00 119 /min [facility] Body temperature 2021-01-01 00:17:00 37.17 Romy [facility] Respiratory rate 2021-01-01 00:17:00 18 /min [facility] Body height 2021-01-01 00:17:00 157.5 cm [facility] Body weight 2021-01-01 00:17:00 53.071 kg [facility] BMI 2021-01-01 00:17:00 21.40 kg/m2 [facility] Oxygen saturation in Arterial blood by Pulse oximetry 2021-01-01 00:17:00 98 /min [facility] Systolic blood pressure 2020-05-19 17:07:00 99 mm[Hg] [facility] Diastolic blood pressure 2020-05-19 17:07:00 65 mm[Hg] [facility] Heart rate 2020-05-19 17:07:00 82 /min [facility] Body temperature 2020-05-19 17:07:00 37.06 Romy [facility] Respiratory rate 2020-05-19 17:07:00 20 /min [facility] Body height 2020-05-19 17:07:00 157.5 cm [facility] Body weight 2020-05-19 17:07:00 51.982 kg [facility] BMI 2020-05-19 17:07:00 20.96 kg/m2 [facility] Oxygen saturation in Arterial blood by Pulse oximetry 2020-05-19 17:07:00 100 /min [facility] Procedures Procedure Date / Time Performed Performing Clinicia n Source ASSIGNMENT OF BENEFITS 2023-09-30 20:19:13 Docto r Unassigned, [place] [facility] POCT TEST 2021-07-31 10:14:00 Jayant Pitts [facility] LIPASE 2021-07-31 10:13:00 Jayant Pitts [facility] COMP. METABOLIC PANEL ([id number]) 2021-07-31 10:13:00 Jayant Pitts [facility] CBC WITH DIFF 2021-07-31 10:13:00 Jayant Pitts [facility] URINALYSIS 2021-07-31 10:13:00 Jayant Pitts [facility] CONSENT/REFUSAL FOR DIAGNOSIS AND TREATMENT 2021-07-31 09:52:19 Doctor Unassigned, [place] [facility] COVID-19 (ID NOW RAPID TESTING) 2021-03-26 21:02:00 Beau Ly [facility] POCT TEST 2021-03-26 20:36:00 Beau Ly [facility] URINALYSIS 2021-03-26 20:15:00 Beau Ly [facility] CONSENT/REFUSAL FOR DIAGNOSIS AND TREATMENT 2021-03-26 18:31:47 Doctor Unassigned, [place] [facility] ASSIGNMENT OF BENEFITS 2021-01-10 15:51:48 Docto r Unassigned, [place] [facility] POCT URINALYSIS 2021-01-01 00:14:00 Kelly Ornelas [facility] POCT TEST 2021-01-01 00:14:00 Kelly Ornelas [facility] Encounters Start Date/Time End Date/Time Encounter Type Admission Type Attending [facility] Care Department Encounter ID Source 2021-09-29 19:51:03 Emergency [facility] [id number] [facility] 2021-09-28 15:53:09 Emergency [facility] [id number] [facility] 2024-04-07 09:30:00 2024-04-07 09:30:00 Office Visit Viet Abdi [facility] 1.2.840.114 350.1.13.10 4.2.7.2.686 [id number] [facility] 2024-04-07 09:30:00 2024-04-07 09:28:16 Outpatient R ESTEPHANIA ABDIL VIET ABDI [facility] [id number] [facility] 2024-03-13 09:30:00 2024-03-13 09:30:00 Outpatient R BIANCHI-BLACK S, VIET BIANCHI-BLACK S, VIET [facility] [id number] [facility] 2024-03-06 00:00:00 2024-03-06 00:00:00 Pre Visit Outreach Bouchra Hartley 1..840.114 350.1.13.10 4.2.7.2.686 [id number] [facility] 2024-02-14 14:30:00 2024-02-14 14:30:00 Outpatient R BIANCHI-BLACK S, VIET BIANCHI-BLACK S, VIET [facility] [id number] [facility] 2024-01-13 11:00:00 2024-01-13 11:00:00 Office Visit Bianchi-Black sGisselViet [facility] 1..840.114 350.1.13.10 4.2.7.2.686 [id number] [facility] 2024-01-13 11:00:00 2024-01-13 10:55:15 Outpatient R BIANCHI-BLACK S, VIET BIANCHI-BLACK S, VIET [facility] [id number] [facility] 2023-10-04 11:30:00 2023-10-04 11:30:00 Outpatient R EB GRAMAJO [facility] [id number] [facility] 2023-09-30 15:20:00 2023-09-30 15:38:50 Outpatient R JANETH GALLAGHER [facility] [id number] [facility] 2023-09-30 15:20:00 2023-09-30 15:38:50 Urgent Care Janeth Gallagher Unknown, Attending [facility] 1..840.114 350.1.13.10 4.2.7.2.686 [id number] [facility] 2023-09-30 00:00:00 2023-09-30 00:00:00 Orders Only Doctor Unassigned, [place] [facility] 1.840.114 350.1.13.10 4.2.7.2.686 [id number] [facility] 2023-01-30 00:00:00 2023-01-30 00:00:00 Outpatient [facility]_ Black_D PRIV PRIV [id number] [facility] 2023-01-30 00:00:00 2023-01-30 00:00:00 Outpatient [facility]_ Black_D PRIV PRIV [id number] [facility] 2023-01-25 00:00:00 2023-01-25 00:00:00 Outpatient [facility]_ Black_D PRIV PRIV [id number] [facility] 2021-07-31 04:42:00 2021-07-31 06:56:00 Emergency Hong Geraldineyuridia Carr [facility] 1.84.114 350.1.13.10 4.2.7.2.686 [id number] [facility] 2021-03-26 13:45:00 2021-03-26 16:50:00 Emergency Beau Ly [facility] 1.0.114 350.1.13.10 4.2.7.2.686 [id number] [facility] 2021-01-12 00:00:00 2021-01-12 00:00:00 Patient Secure Msg Doctor Unassigned, [place] [facility] 1.84.114 350.1.13.10 4.2.7.2.686 [id number] [facility] 2021-01-10 09:59:23 2021-01-10 10:14:23 Laboratory Only Only, Adc Test Mike Smalls [facility] 1.114 350.1.13.10 4.2.7.2.686 [id number] [facility] 2021-01-10 10:00:00 2021-01-10 10:00:00 Outpatient R [facility] [id number] [facility] 2021-01-10 00:00:00 2021-01-10 00:00:00 Orders Only Doctor Unassigned, [place] [facility] 1.114 350.1.13.10 4.2.7.2.686 [id number] [facility] 2020-12-31 17:51:40 2020-12-31 18:11:40 Urgent Care Provider, [facility] Urgent Care [facility] 1. 350.1.13.10 4.2.7.2.686 [id number] [facility] 2020-12-31 17:40:00 2020-12-31 17:40:00 Outpatient R [facility] [id number] [facility] 2020-12-28 10:45:48 2020-12-28 11:05:48 Laboratory Only Lab, Adc Fam Pob I [facility] 1.114 350.1.13.10 4.2.7.2.686 [id number] [facility] 2020-12-28 10:40:00 2020-12-28 10:40:00 Outpatient R [facility] [id number] [facility] 2020-12-28 00:00:00 2020-12-28 00:00:00 Letter (Out) Doctor Unassigned, [place] [facility] 1.114 350.1.13.10 4.2.7.2.686 [id number] [facility] 2020-05-19 12:04:55 2020-05-19 12:24:55 Urgent Care Pob1, [facility] 1.2.840.114 350.1.13.10 4.2.7.2.686 [id number] [facility] 2020-05-19 12:20:00 2020-05-19 12:20:00 Outpatient R LESA MELÉNDEZ [facility] [id number] [facility] Results Test Description Test Time Test Comments Results Result Co mments Source [facility]* Test Item Value Reference Range Interpretation Comme nts LIPASE (test code = 7458822280) 113 U/L 0-220 Lab Interpretation (test cod e = 76897-8) Normal [facility] (51055)2021-07-31 11:09:37* Test Item Value Reference Range Interpretation Comme nts NA (test code = 3614299979) 142 mmol/L 135-145 K (test code = 1015036472) 3.6 mmol/L 3.5-5.0 CL (test code = 2203857966) 105 mmol/L 98-108 CO2 TOTAL (test code = 1020462671) 26 mmol/L 23-31 AGAP (test code = 4305719969) 2-16 BUN (test code = 6377978800) 6 mg/dL 7-23 L GLUCOSE (test code = 1098055695) 103 mg/dL 70-110 CREATININE (test code = 1651749374) 0.59 mg/dL 0.50-1.04 TOTAL BILI (test code = 2062651665) 0.7 mg/dL 0.1-1.1 CALCIUM (test code = 4173678251) 10.2 mg/dL 8.6-10.6 T PROTEIN (test code = 3991786529) 8.3 g/dL 6.3-8.2 H ALBUMIN (test code = 3061315371) 5.0 g/dL 3.5-5.0 ALK PHOS (test code = 9685070227) 85 U/L 34-122 ALTv (test code = 1742-6) 11 U/L 5-35 AST(SGOT) (test code = 1811404510) 22 U/L 13-40 eGFR (test code = 4537968062) mL/min/1.73m2 ANGELINE (test code = ANGELINE) Association of [...] or abnormalities in imaging tests). Lab Interpretation (test code = 67910-3) Abnormal [facility]. Metabolic Panel (42444)2021-07-31 11:09:37* Test Item Value Reference Range Interpretation Comme nts NA (test code = 7781872309) 142 mmol/L 135-145 K (test code = 0569091933) 3.6 mmol/L 3.5-5.0 CL (test code = 7007928315) 105 mmol/L 98-108 CO2 TOTAL (test code = 8892489511) 26 mmol/L 23-31 AGAP (test code = 7980589860) 2-16 BUN (test code = 5121863062) 6 mg/dL 7-23 L GLUCOSE (test code = 9895886646) 103 mg/dL 70-110 CREATININE (test code = 5301005559) 0.59 mg/dL 0.50-1.04 TOTAL BILI (test code = 1858444855) 0.7 mg/dL 0.1-1.1 CALCIUM (test code = 8415603188) 10.2 mg/dL 8.6-10.6 T PROTEIN (test code = 1465251175) 8.3 g/dL 6.3-8.2 H ALBUMIN (test code = 9080359997) 5.0 g/dL 3.5-5.0 ALK PHOS (test code = 1534865330) 85 U/L 34-122 ALTv (test code = 1742-6) 11 U/L 5-35 AST(SGOT) (test code = 9756606656) 22 U/L 13-40 eGFR (test code = 3541831756) mL/min/1.73m2 ANGELINE (test code = ANGELINE) Association of [...] or abnormalities in imaging tests). Lab Interpretation (test code = 20571-5) [facility]:09[facility]16* Test Item Value Reference Range Interpretation Comme nts APPEARANCE (test code = 1998220273) Cloudy Clear A COLOR (test code = 9894632541) Yellow Yellow PH (test code = 9644604471) 4.8-8.0 SP GRAVITY (test code = 9015721348) 1.003-1.030 GLU U QUAL (test code = 7344222309) Normal Normal BLOOD (test code = 3469377547) 1+ Negative A KETONES (test code = 1831308899) Negative Negative PROTEIN (test code = 2887-8) Negative Negative UROBILIN (test code = 4574536259) Normal Normal BILIRUBIN (test code = 1787483224) Negative Negative NITRITE (test code = 5409372757) Negative Negative LEUK ISIDORO (test code = 2386969381) 500/uL Negative A RBC/HPF (test code = 9888535162) See_Comment H [Automated [employer]] The system which generated this result transmitted reference range: 0 - 3 HPF. The reference range was not used to interpret this result as normal/abnormal. WBC/HPF (test code = 1278088032) See_Comment H [Automated [employer]] The system which generated this result transmitted reference range: 0 - 5 HPF. The reference range was not used to interpret this result as normal/abnormal. BACTERIA (test code = 5296265519) Many Negative A MUCOUS (test code = 0752519828) Slight Negative LPF A SQ EPITH (test code = 2071262475) HPF Lab Interpretation (test code = 94610-7) [facility]normal [facility] 11:09:16* Test Item Value Reference Range Interpretation Comme nts APPEARANCE (test code = 7592444486) Cloudy Clear A COLOR (test code = 8630686355) Yellow Yellow PH (test code = 0208752094) 4.8-8.0 SP GRAVITY (test code = 9097450183) 1.003-1.030 GLU U QUAL (test code = 7631510774) Normal Normal BLOOD (test code = 7859181000) 1+ Negative A KETONES (test code = 3932236139) Negative Negative PROTEIN (test code = 2887-8) Negative Negative UROBILIN (test code = 5421421365) Normal Normal BILIRUBIN (test code = 4234146520) Negative Negative NITRITE (test code = 7107457461) Negative Negative LEUK ISIDORO (test code = 4704216485) 500/uL Negative A RBC/HPF (test code = 1388726276) See_Comment H [Automated messa ge] The system which generated this result transmitted reference range: 0 - 3 HPF. The reference range was not used to interpret this result as normal/abnormal. WBC/HPF (test code = 5874775889) See_Comment H [Automated messa ge] The system which generated this result transmitted reference range: 0 - 5 HPF. The reference range was not used to interpret this result as normal/abnormal. BACTERIA (test code = 0116080443) Many Negative A MUCOUS (test code = 5738056979) Slight Negative LPF A SQ EPITH (test code = 6951566857) HPF Lab Interpretation (test code = 80628-0) Abnormal [facility] with [id number] 10:56:56* Test Item Value Reference Range Interpretation Comme nts WBC (test code = 6690-2) See_Comment H [Automated messa ge] The system which generated this result transmitted reference range: 4.30 - 11.10 10*3/?L. The reference range was not used to interpret this result as normal/abnormal. RBC (test code = 789-8) See_Comment [Automated messa ge] The system which generated this result transmitted reference range: 3.93 - 5.25 10*6/?L. The reference range was not used to interpret this result as normal/abnormal. HGB (test code = 718-7) 13.7 g/dL 11.6-15.0 HCT (test code = 4544-3) 38.8 % 35.7-45.2 MCV (test code = 787-2) 87.8 fL 80.6-95.5 MCH (test code = 785-6) 31.0 pg 25.9-32.8 MCHC (test code = 786-4) 35.3 g/dL 31.6-35.1 H RDW-SD (test code = 64547-1) 36.8 fL 39.0-49.9 L RDW-CV (test code = 788-0) 11.5 % 12.0-15.5 L PLT (test code = 777-3) See_Comment [Automated messa ge] The system which generated this result transmitted reference range: 166 - 358 10*3/?L. The reference range was not used to interpret this result as normal/abnormal. MPV (test code = 55551-1) 10.2 fL 9.5-12.9 NRBC/100 WBC (test code = 8576461716) See_Comment [Automated [employer] ssage] The system which generated this result transmitted reference range: 0.0 - 10.0 /100 WBCs. The reference range was not used to interpret this result as normal/abnormal. NRBC x10^3 (test code = 6009887038) <0.01 See_Comment [Automated [employer] ge] The system which generated this result transmitted reference range: 10*3/?L. The reference range was not used to interpret this result as normal/abnormal. GRAN MAT (NEUT) % (test code = 770-8) 73.1 % IMM GRAN % (test code = 2452731379) 0.40 % LYMPH % (test code = 736-9) 17.0 % MONO % (test code = 5905-5) 6.8 % EOS % (test code = 713-8) 2.3 % BASO % (test code = 706-2) 0.4 % GRAN MAT x10^3(ANC) (test code = 2639472349) 8.72 10*3/uL 1.88-7.09 H IMM GRAN x10^3 (test code = 8335413626) 0.05 10*3/uL 0.00-0.06 LYMPH x10^3 (test code = 731-0) 2.03 10*3/uL 1.32-3.29 MONO x10^3 (test code = 742-7) 0.81 10*3/uL 0.33-0.92 EOS x10^3 (test code = 711-2) 0.28 10*3/uL 0.03-0.39 BASO x10^3 (test code = 704-7) 0.05 10*3/uL 0.01-0.07 Lab Interpretation (test code = 98370-3) Abnormal [facility] with [id number] 10:56:56* Test Item Value Reference Range Interpretation Comme nts WBC (test code = 6690-2) See_Comment H [Automated messa ge] The system which generated this result transmitted reference range: 4.30 - 11.10 10*3/?L. The reference range was not used to interpret this result as normal/abnormal. RBC (test code = 789-8) See_Comment [Automated messa ge] The system which generated this result transmitted reference range: 3.93 - 5.25 10*6/?L. The reference range was not used to interpret this result as normal/abnormal. HGB (test code = 718-7) 13.7 g/dL 11.6-15.0 HCT (test code = 4544-3) 38.8 % 35.7-45.2 MCV (test code = 787-2) 87.8 fL 80.6-95.5 MCH (test code = 785-6) 31.0 pg 25.9-32.8 MCHC (test code = 786-4) 35.3 g/dL 31.6-35.1 H RDW-SD (test code = 62916-5) 36.8 fL 39.0-49.9 L RDW-CV (test code = 788-0) 11.5 % 12.0-15.5 L PLT (test code = 777-3) See_Comment [Automated messa ge] The system which generated this result transmitted reference range: 166 - 358 10*3/?L. The reference range was not used to interpret this result as normal/abnormal. MPV (test code = 78485-5) 10.2 fL 9.5-12.9 NRBC/100 WBC (test code = 7145270120) See_Comment [Automated me ssage] The system which generated this result transmitted reference range: 0.0 - 10.0 /100 WBCs. The reference range was not used to interpret this result as normal/abnormal. NRBC x10^3 (test code = 1616285129) <0.01 See_Comment [Automated messa ge] The system which generated this result transmitted reference range: 10*3/?L. The reference range was not used to interpret this result as normal/abnormal. GRAN MAT (NEUT) % (test code = 770-8) 73.1 % IMM GRAN % (test code = 7462398046) 0.40 % LYMPH % (test code = 736-9) 17.0 % MONO % (test code = 5905-5) 6.8 % EOS % (test code = 713-8) 2.3 % BASO % (test code = 706-2) 0.4 % GRAN MAT x10^3(ANC) (test code = 1790553073) 8.72 10*3/uL 1.88-7.09 H IMM GRAN x10^3 (test code = 8946739024) 0.05 10*3/uL 0.00-0.06 LYMPH x10^3 (test code = 731-0) 2.03 10*3/uL 1.32-3.29 MONO x10^3 (test code = 742-7) 0.81 10*3/uL 0.33-0.92 EOS x10^3 (test code = 711-2) 0.28 10*3/uL 0.03-0.39 BASO x10^3 (test code = 704-7) 0.05 10*3/uL 0.01-0.07 Lab Interpretation (test code = 54390-9) Abnormal [facility] [id number] 10:14:00* Test Item Value Reference Range Interpretation Comme nts POCT PREG (test code = 1605) negative On board controls acceptable with C Line (test code = 3574) yes POCT PREG LOT # (test code = 3575) [id number] POCT PREG TEST DATE ( test code = 3576) 11/28/2022 Lab Interpretation (test cod e = 59379-7) Normal [facility] [id number] 10:14:00* Test Item Value Reference Range Interpretation Comme nts POCT PREG (test code = 1605) negative On board controls acceptable with C Line (test code = 3574) yes POCT PREG LOT # (test code = 3575) [id number] POCT PREG TEST DATE ( test code = 3576) 11/28/2022 Lab Interpretation (test cod e = 35600-9) [facility]2021-03-26 21:45:31* Test Item Value Reference Range Interpretation Comme nts SARS-CoV-2 Rapid ID NOW (test code = 28970-5) Not Detected Not Detected ANGELINE (test code = ANGELINE) ID NOW COVID-19 As say is an isothermal nucleic acid amplification test intended for the qualitative detection of nucleic acid from SARS-CoV-2 viral RNA in nasopharyngeal (GAMBRELER) specimens. It is used under Emergency Use [...] patient testing if clinically indicated. Lab Interpretation (test code = 50011-5) [facility] 20:59:37* Test Item Value Reference Range Interpretation Comme nts APPEARANCE (test code = 1127907602) Clear Clear COLOR (test code = 5987361671) Straw Yellow A PH (test code = 1260341595) 4.8-8.0 SP GRAVITY (test code = 0963537764) 1.003-1.030 GLU U QUAL (test code = 8809162436) Normal Normal BLOOD (test code = 4929372813) Negative Negative KETONES (test code = 4767612164) Negative Negative PROTEIN (test code = 2887-8) Negative Negative UROBILIN (test code = 3369928784) Normal Normal BILIRUBIN (test code = 0550184896) Negative Negative NITRITE (test code = 5909729725) Negative Negative LEUK ISIDORO (test code = 7065574336) 25/uL Negative A RBC/HPF (test code = 7220788470) See_Comment [Automated messa ge] The system which generated this result transmitted reference range: 0 - 3 HPF. The reference range was not used to interpret this result as normal/abnormal. WBC/HPF (test code = 0832553004) See_Comment [Automated messa ge] The system which generated this result transmitted reference range: 0 - 5 HPF. The reference range was not used to interpret this result as normal/abnormal. BACTERIA (test code = 0919624026) Many Negative A AMORPHOUS (test code = 5386078894) Rare Rare HPF SQ EPITH (test code = 5143371512) <1 HPF Lab Interpretation (test code = 90510-5) Abnormal [facility] [id number] 20:36:00* Test Item Value Reference Range Interpretation Comme nts POCT PREG (test code = 1605) neg On board controls acceptable with C Line (test code = 3574) yes POCT PREG LOT # (test code = 3575) [id number] POCT PREG TEST DATE ( test code = 3576) 10/28/2022 Lab Interpretation (test cod e = 52843-9) Normal [facility] URINALYSIS W SPECIFIC [id number] 00:25:00* Test Item Value Reference Range Interpretation Comme nts POCT U SP GRAV (test code = 3255) 1.020 mg/dl 1.005-1.025 POCT PH U (test code = 3254) 5 mg/dl 5-8 POCT U LEUK EST (test code = 3263) Trace Negative - Negative POCT U NIT (test code = 3262) Positive Negative - Negati ve POCT U PROT (test code = 3259) Trace Negative - Negative POCT U GLU (test code = 3256) Negative Negative - Negati ve POCT U KETONE (test code = 3258) Negative Negative - Negative POCT U UROBILI (test code = 3260) 8 mg/dl 0.2-1 POCT U BILI (test code = 3261) 2+ Negative - Negative POCT U BLD (test code = 3257) Trace Negative - Negati ve POCT U COLOR (test code = 3266) orange POCT U APPEAR (test code = 3267) cloudy Lab Interpretation (test cod e = 10437-2) [facility] [id number] 00:25:00* Test Item Value Reference Range Interpretation Comme nts POCT PREG (test code = 1605) Negative On board controls acceptable with C Line (test code = 3574) Yes POCT PREG LOT # (test code = 3575) POCT PREG TEST DATE ( test code = 3576) Lab Interpretation (test cod e = 56076-7) Normal [facility]"
[2024-05-24 11:08] LABS: Absolute Eosinophils 0.2 K/uL (0-0.5); Absolute Lymphocytes (CBC) 1.4 K/uL (0.7-4.9); Absolute Monocytes 0.7 K/uL (0.1-1.3); Absolute Neutrophil 8.1 K/uL (1.8-8.0); Basophils % 0.3 % (0-1.3); Eosinophils % 1.6 % (0-4.4); Hematocrit 40.5 % (36.0-45.0); Hemoglobin 13.9 g/dL (12.0-15.0); Lymphocytes % 13.3 % (15.3-44.8); MCH 30.6 pg (27.0-35.0); MCHC 34.3 g/dL (32.0-36.0); MCV 89.1 fL (80-100); Monocytes % 6.5 % (3.3-12.3); Neutrophils % 78.3 % (41.7-73.7); Platelets 337 thou/uL (152-406); RBC Red Blood Cell Count 4.55 M/uL (3.86-4.86)
[2024-05-24 11:15] LABS: Specific Gravity 1.004 (1.005-1.030)
[2024-05-24 11:18] LABS: Specific Gravity < 1.005 (1.005-1.030); Sqamous Epithelial <5 /HPF (None Seen); Transitional Epithelial <5 /HPF (None Seen); Urine Bacteria None Seen /HPF (<20); Urine Bilirubin NEGATIVE (Negative); Urine Blood Negative (Negative); Urine Clarity Turbid (Clear); Urine Color Colorless (Yellow); Urine Culture Reflex Order NOT NEEDED; Urine Glucose NEGATIVE (Negative); Urine Ketones NEGATIVE (Negative); Urine Microscopic Reflex YN ORDER UMIC; Urine Nitrite NEGATIVE (Negative); Urine Protein NEGATIVE (Negative); Urine RBC <5 /HPF (None Seen); Urine Urobilinogen Normal (Normal); Urine WBC <5 /HPF (<5); Urine pH 6.5 (5.0-7.0)
[2024-05-24 11:23] LABS: Albumin 4.5 g/dL (3.4-5.0); Albumin/Globulin Ratio 1.2 (1.1-1.8); Anion Gap 6.4 mEq/L (5.0-15.0); Bilirubin Total 0.7 mg/dL (0.2-1.0); Globulin 3.7 g/dL (2.3-3.5); Potassium 3.4 mEq/L (3.5-5.1); Protein, Total 8.2 g/dL (6.4-8.2)
[2024-05-24] MEDS ORDERED: MORPHINE 4 MG/ML SYR ONE (11:45)
[2024-05-24] MEDS ORDERED: ONDANSETRON 4 MG/2 ML VIAL ONE (11:45)
--- NOTE | 2024-05-24 11:50 | RAD REPORT ---
EXAM DESCRIPTION: CT - Abdomen Pelvis W Contrast - 05/24/2024 11:34 am CLINICAL HISTORY: Abdominal pain COMPARISON: none. TECHNIQUE: Computed axial tomography of the abdomen pelvis was obtained. 100 cc Isovue-300 was admin istered intravenously. Oral contrast was not requested which limits evaluation of bowel and appendix All CT scans are performed using dose optimization technique as appropriate and may include automated exposure control or mA/KV adjustment according to patient size. FINDINGS: The liver, spleen, pancreas, adrenal and kidneys appear unremarkable. There is no evidence of diverticulitis. There appears to be an arcuate uterus. 1.5 centimeter right ovarian follicle. No significant free fluid. Normal appendix IMPRESSION: No acute abnormality is displayed.
--- NOTE | 2024-05-24 11:58 | RAD REPORT ---
EXAM DESCRIPTION: US - Transvaginal Study Probe - 05/24/2024 11:20 am CLINICAL HISTORY: Pelvic pain COMPARISON: none FINDINGS: The uterus measures 7 x 4 x 4 cm. A fibroid is not seen. The endometrial stripe is not thi ckened. The ovaries are normal in size and echotexture. The right and left adnexa unremarkable No significant free fluid is seen. IMPRESSION: Unremarkable pelvic ultrasound
[2024-05-24] MEDS ORDERED: KETOROLAC 30 MG/ML INJ ONE (13:11)
--- NOTE | 2024-05-24 13:19 | EDPHYS ---
Physician Documentation [facility] Name: Jannette Wilkes Age: 23 yrs Sex: Female : 2000 Arrival Date: 05/24/2024 Time: 10:25 Bed 12 Private MD: ED Physician Juice Bowling HPI: 05/24 13:14 This 23 yrs old Female presents to ER via Ambulatory with complaints of Abdominal Pain rn - RLQ. 13:14 The patient presents with abdominal pain right lower quadrant. Onset: The rn symptoms/episode began/occurred 2 day(s) ago. The symptoms do not radiate. Associated signs and symptoms: Pertinent negatives: nausea and vomiting, anorexia, blood in stools, chest pain, diarrhea, dysuria, fever, headache, hematuria, vaginal discharge. Modifying factors: The symptoms are alleviated by nothing, the symptoms are aggravated by touching the area. Severity of pain: At its worst the pain was moderate in the emergency department the pain is unchanged. The patient has experienced similar episodes in the past. Patient reports right lower quadrant abdominal pain for 2 days. Has had ovarian cyst in the past and this feels similar. Denies fever/vomiting/anorexia. No vaginal discharge. 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 - Infectious Disease History:: Denies. - Social history:: Smoking status: Reported history of juuling and/or vaping. - Family history:: not pertinent. - Hospitalizations: : No recent hospitalization is reported. ROS: 13:14 Constitutional: Negative for fever, chills, and weight loss, Cardiovascular: Negative rn for chest pain, palpitations, and edema, Respiratory: Negative for shortness of breath, cough, wheezing, and pleuritic chest pain, Abdomen/GI: Positive for abdominal pain Back: Negative for injury and pain, : Negative for injury, bleeding, discharge, and swelling, MS/Extremity: Negative for injury and deformity, Skin: Negative for injury, rash, and discoloration, Neuro: Negative for headache, weakness, numbness, tingling, and seizure, Exam: 13:14 Constitutional: This is a well developed, well nourished patient who is awake, alert, rn and in no acute distress. Cardiovascular: Regular rate and rhythm. No pulse deficits. Respiratory: No increased work of breathing, no retractions or nasal flaring. Abdomen/GI: Soft, mild right lower quadrant tenderness without guarding or rebound Vital Signs: 12:03 BP 117 / 81; Pulse 88; Resp 18; Temp 97.5; Pulse Ox 100% ; as6 13:14 BP 113 / 69; Pulse 76; Resp 18; Pulse Ox 100% ; as6 MDM: 10:35 Patient medically screened. rn 13:14 Differential diagnosis: appendicitis, Endometriosis, non-specific abd pain, Ovarian rn Torsion, Pyelonephritis, Ureterolithiasis, urinary tract infection. Data reviewed: vital signs, nurses notes, lab test result(s), radiologic studies, CT scan, and as a result, I will discharge patient. Counseling: I had a detailed discussion with the patient and/or guardian regarding the historical points, exam findings, and any diagnostic results supporting the discharge/admit diagnosis, lab results, radiology results, the need for outpatient follow up, to return to the emergency department if symptoms worsen or persist or if there are any questions or concerns that arise at home. Response to treatment: the patient's symptoms have mildly improved after treatment, and as a result, I will discharge patient. Special discussion: I discussed with the patient/guardian in detail that at this point there is no indication for admission to the hospital. It is understood, however, that if the symptoms persist or worsen the patient needs to return immediately for re-evaluation. ED course: No acute findings and workup today. Patient states history of endometriosis which could explain her pain was specifically no appendicitis on imaging. No evidence of torsion. I have personally reviewed all of the results, including but not limited to blood tests and imaging deemed necessary to safely discharge this patient at this time. All results given to and printed out for patient. I personally went over all the results with the patient and answered all questions. Patient will follow-up with PCP and or specialist as discussed. Return precautions given and understood.. 05/24 10:35 Order name: Test, Urine; Complete Time: 11:24 rn 05/24 10:35 Order name: Urinalysis w/ reflexes; Complete Time: 11:24 rn 05/24 10:43 Order name: CBC with Diff; Complete Time: 11:24 rn 05/24 10:43 Order name: CMP; Complete Time: 11:24 rn 05/24 10:43 Order name: Lipase; Complete Time: 11:24 rn 05/24 10:43 Order name: CT Abd/Pelvis - IV Contrast Only; Complete Time: 12:01 rn 05/24 11:12 Order name: Transvaginal Study Probe; Complete Time: 12:01 EDMS 05/24 10:43 Order name: IV Saline Lock; Complete Time: 10:59 rn 05/24 10:43 Order name: Labs collected and sent; Complete Time: 10:59 rn Administered Medications: 11:52 Drug: Ondansetron IVP 4 mg IVP once; over 2 minutes Route: IVP; Site: right forearm; as6 13:07 Follow up: Response: No adverse reaction as6 11:52 Drug: morphine IVP or IV 4 mg IVP once over 4 mins Route: IVP; Infused Over: 4 mins; as6 Site: right forearm; 13:07 Follow up: Response: No adverse reaction as6 13:14 Drug: Ketorolac IVP 30 mg IVP once Route: IVP; Site: right forearm; as6 13:24 Follow up: Response: No adverse reaction as6 Disposition Summary: 05/24/24 13:18 Discharge Ordered Notes: Location: Home rn Problem: new rn Symptoms: have improved rn Condition: Stable rn Diagnosis - Lower abdominal pain, unspecified rn - Other and unspecified ovarian cysts rn Followup: rn - With: Private Physician - When: As needed - Reason: Recheck today's complaints, Re-evaluation by your physician Discharge Instructions: - Discharge Summary Sheet rn - Abdominal Pain, Adult rn - Ovarian Cyst rn Forms: - Medication Reconciliation Form rn - Antibiotic 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 EDGA EDMS 10:36 10:36 Urinalysis+U.LAB.BRZ ordered. EDMS EDMS 10:43 10:43 Abdomen Pelvis W Con+CT.RAD.BRZ ordered. EDMS EDMS 10:43 10:43 Pelvis Complete+US.RAD.BRZ ordered. EDMS EDMS
--- NOTE | 2024-05-24 13:19 | ER ---
Nurse's Notes [facility] Name: Jannette Wilkes Age: 23 yrs Sex: Female : 2000 Arrival Date: 05/24/2024 Time: 10:25 Bed 12 Private MD: Diagnosis: Lower abdominal pain, unspecified;Other and unspecified ovarian cysts Presentation: 05/24 11:02 Chief complaint: Patient states: RLQ pain X 2 days ago. Coronavirus screen: At this iw time, the client does not indicate any symptoms associated with coronavirus-19. Ebola Screen: Patient negative for fever greater than or equal to 101.5 degrees Fahrenheit, and additional compatible Ebola Virus Disease symptoms Patient denies exposure to infectious person. Patient denies travel to an Ebola-affected area in the 21 days before illness onset. No symptoms or risks identified at this time. Initial Sepsis Screen: Does the patient meet any 2 criteria? No. Patient's initial sepsis screen is negative. Does the patient have a suspected source of infection? No. Patient's initial sepsis screen is negative. Risk Assessment: Do you want to hurt yourself or someone else? Patient reports no desire to harm self or others. Onset of symptoms was May 22, 2024. 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 - Infectious Disease History:: Denies. - Social history:: Smoking status: Reported history of juuling and/or vaping. - Family history:: not pertinent. - Hospitalizations: : No recent hospitalization is reported. Screenin:04 [facility] ED Fall Risk Assessment (Adult) History of falling in the last 3 months, as6 including since admission No falls in past 3 months (0 pts) Confusion or Disorientation No (0 pts) Intoxicated or Sedated No (0 pts) Impaired Gait No (0 pts) Mobility Assist Device Used No (0 pt) Altered Elimination No (0 pt) Score/Fall Risk Level 0 - 2 = Low Risk Oriented to surroundings, Maintained a safe environment, Educated pt \T\ family on fall prevention, incl call for assistance when getting out of bed, Assessed \T\ reinforced patient's understanding of fall precautions. Abuse screen: Denies threats or abuse. Denies injuries from another. Nutritional screening: No deficits noted. Tuberculosis screening: No symptoms or risk factors identified. Assessment: 12:04 General: Appears in no apparent distress. Behavior is calm, cooperative. Pain: as6 Complains of pain in right lower quadrant. GI: Reports lower abdominal pain, Patient currently denies nausea, vomiting. : No signs and/or symptoms were reported regarding the genitourinary system. 13:25 Reassessment: Patient appears in no apparent distress at this time. Patient and/or as6 family updated on plan of care and expected duration. Pain level reassessed. Patient is alert, oriented x 3, equal unlabored respirations, skin warm/dry/pink. Patient states feeling better. Vital Signs: 12:03 BP 117 / 81; Pulse 88; Resp 18; Temp 97.5; Pulse Ox 100% ; as6 13:14 BP 113 / 69; Pulse 76; Resp 18; Pulse Ox 100% ; as6 ED Course: 10:26 Patient arrived in ED. am2 10:35 Juice Bowling MD is Attending Physician. rn 10:59 CBC with Diff Sent. bc6 10:59 CMP Sent. bc6 10:59 Lipase Sent. bc6 10:59 Initial lab(s) drawn, by me, sent to lab. Inserted saline lock: 24 gauge in right bc6 forearm, using aseptic technique. Blood collected. 11:02 Triage completed. iw 11:22 Transvaginal Study Probe In Process Unspecified. EDMS 11:36 CT Abd/Pelvis - IV Contrast Only In Process Unspecified. EDMS 12:03 Arm band placed on. as6 12:04 Bed in low position. Call light in reach. Client placed on continuous cardiac and pulse as6 oximetry monitoring. NIBP monitoring applied. Warm blanket given. 13:07 Himanshu Antunez, SUHAS is Primary Nurse. as6 13:14 No provider procedures requiring assistance completed. as6 13:25 IV discontinued, intact, bleeding controlled, No redness/swelling at site. Pressure as6 dressing applied. 13:25 Provided Education on: follow up. as6 Administered Medications: 11:52 Drug: Ondansetron IVP 4 mg IVP once; over 2 minutes Route: IVP; Site: right forearm; as6 13:07 Follow up: Response: No adverse reaction as6 11:52 Drug: morphine IVP or IV 4 mg IVP once over 4 mins Route: IVP; Infused Over: 4 mins; as6 Site: right forearm; 13:07 Follow up: Response: No adverse reaction as6 13:14 Drug: Ketorolac IVP 30 mg IVP once Route: IVP; Site: right forearm; as6 13:24 Follow up: Response: No adverse reaction as6 Medication: 12:04 VIS not applicable for this client. as6 Outcome: 13:14 Discharged to home ambulatory, with friend, as6 13:14 Condition: stable 13:18 Discharge ordered by . rn 13:25 Discharge instructions given to patient, Instructed on discharge instructions, follow as6 up and referral plans. no drinking with medication, medication usage, Demonstrated understanding of instructions, follow-up care, medications, Prescriptions given X 1, 13:25 Patient left the ED. as6 Signatures: Dispatcher [employer] EDYvette Watson, Juice Novak RN, MD MD rn Moreno, Amanda am2 Slawson, Ashby, RN RN as6 [place]6
[2024-05-24 13:36] VITALS: BP 113/69; TEMP 97.5; O2SAT 100
== END 2024-05-24 13:25 | disposition home or self-care (01) ==
LOC: ER 10:25
DX: N83.299 Other ovarian cyst, unspecified side (principal)
CPT/HCPCS: 85025; 81001; 36415; 81025; 83690; 80053; 74177; 76830; Q9967; J2405; 96374; 96375; 99284

== ENCOUNTER 2025-03-13 17:45 | Emergency (ER) | payer BC ==
[2025-03-13 19:06] LABS: Absolute Basophils 0.1 K/uL (0-0.5); Absolute Eosinophils 0.1 K/uL (0-0.5); Absolute Lymphocytes (CBC) 1.3 K/uL (0.7-4.9); Absolute Monocytes 0.7 K/uL (0.1-1.3); Absolute Neutrophil 16.2 K/uL (1.8-8.0); Basophils % 0.3 % (0-1.3); Eosinophils % 0.5 % (0-4.4); Hematocrit 39.9 % (36.0-45.0); Lymphocytes % 7.2 % (15.3-44.8); MCH 30.5 pg (27.0-35.0); MCHC 35.1 g/dL (32.0-36.0); MPV 7.9 fL (7.6-11.3); Platelets 365 thou/uL (152-406); RBC Red Blood Cell Count 4.58 M/uL (3.86-4.86); Red Cell Distribution Width 11.9 % (12.1-15.2)
[2025-03-13 19:10] LABS: Specific Gravity 1.014 (1.005-1.030)
[2025-03-13 19:13] LABS: Specific Gravity 1.014 (1.005-1.030); Sqamous Epithelial <5 /HPF (None Seen); Urine Bacteria <20 /HPF (<20); Urine Bilirubin NEGATIVE (Negative); Urine Blood Negative (Negative); Urine Clarity Turbid (Clear); Urine Color Light-Yellow (Yellow); Urine Crystals Unidentified Few /HPF (None Seen); Urine Culture Reflex Order NOT NEEDED; Urine Glucose NEGATIVE (Negative); Urine Ketones 2+ (Negative); Urine Microscopic Reflex YN ORDER UMIC; Urine Mucus Slight /HPF (None Seen); Urine Nitrite NEGATIVE (Negative); Urine Protein NEGATIVE (Negative); Urine RBC <5 /HPF (None Seen); Urine Urobilinogen Normal (Normal); Urine WBC <5 /HPF (<5)
[2025-03-13] MEDS ORDERED: NA CHLORIDE 0.9% 1,000 ML ONE (19:13)
[2025-03-13 19:21] LABS: PT Prothrombin Time 11.5 SECONDS (10-13.0); PTT, Activated Partial Thromb 30.9 SECONDS (27.2-37.4); Protime INR 1.01
[2025-03-13 20:11] LABS: ALT/SGPT 25 U/L (13-56); AST/SGOT 16 U/L (15-37); Albumin 4.4 g/dL (3.4-5.0); Albumin/Globulin Ratio 1.1 (1.1-1.8); Alkaline Phosphatase 93 U/L (45-117); Anion Gap 9.4 mEq/L (5.0-15.0); BUN Blood Urea Nitrogen 8 mg/dL (7-18); Bicarbonate 26 mEq/L (21-32); Bilirubin Total 0.5 mg/dL (0.2-1.0); Globulin 4.1 g/dL (2.3-3.5); Glomerular Filtration Rate 125 ml/min (=/>90); Glucose Level 94 mg/dL (74-106); Magnesium 1.9 mg/dL (1.6-2.4); Potassium 3.4 mEq/L (3.5-5.1); Protein, Total 8.5 g/dL (6.4-8.2); Sodium Level 137 mEq/L (136-145)
--- NOTE | 2025-03-13 20:23 | RAD REPORT ---
EXAM: CT brain without contrast HISTORY: Headache;Dizziness COMPARISON: None TECHNIQUE: Multiple contiguous axial images were obtained and a CT of the brain without contrast. Sag ittal and coronal reformats were performed. One or more of the following dose reduction techniques were used: Automated exposure control, adjust ment of the mA and/or kV according to patient size, and/or iterative reconstruction. FINDINGS: No evidence of hydrocephalus, intracranial hemorrhage, or extra-axial fluid collection. The brain is normal in morphology. No evidence of midline shift or areas of brain edema. The calvarium is intact. The visualized paranasal sinuses and mastoid air cells are essentially clear . IMPRESSION: No evidence of acute intracranial abnormality.
[2025-03-13 20:35] LABS: Bilirubin Direct < 0.2 mg/dL (0-0.2); Bilirubin Indirect, Calculated 0.3 mg/dL (0.2-0.8); Blood Morphology Comment NOT SEEN (NOT SEEN); Platelet Estimate ADEQ; Troponin High Sensitivity < 3.0 pg/mL (<58.9); White Blood Cell Scan OK (OK)
--- NOTE | 2025-03-13 22:19 | ER ---
Nurse's Notes [facility] Name: Jannette Momin Age: 24 yrs Sex: Female : 2000 Arrival Date: 03/13/2025 Time: 17:45 Bed 18 Private MD: Diagnosis: Headache Presentation: 03/13 18:16 Chief complaint: Patient states: dizziness, fatigue, almost passed out today. iw Coronavirus screen: At this time, the client does not indicate any symptoms associated with coronavirus-19. Ebola Screen: No symptoms or risks identified at this time. Initial Sepsis Screen: Does the patient meet any 2 criteria? No. Patient's initial sepsis screen is negative. Does the patient have a suspected source of infection? No. Patient's initial sepsis screen is negative. Risk Assessment: Do you want to hurt yourself or someone else? Patient reports no desire to harm self or others. Onset of symptoms was March 13, 2025. 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 - Infectious Disease History:: Denies. - Social history:: Smoking status: Reported history of juuling and/or vaping. Screenin:14 [facility] ED Fall Risk Assessment (Adult) History of falling in the last 3 months, me1 including since admission No falls in past 3 months (0 pts) Confusion or Disorientation No (0 pts) Intoxicated or Sedated No (0 pts) Impaired Gait No (0 pts) Mobility Assist Device Used No (0 pt) Altered Elimination No (0 pt) Score/Fall Risk Level 0 - 2 = Low Risk Maintained a safe environment, Provided non-skid footwear, Hourly rounding (assess needs \T\ fall precautionary measures) done. Abuse screen: Denies threats or abuse. Nutritional screening: No deficits noted. Tuberculosis screening: No symptoms or risk factors identified. Assessment: 19:14 General: Appears in no apparent distress. well groomed, well developed, well nourished, me1 Behavior is calm, cooperative, appropriate for age, Reports dizziness, fatigue, almost passed out today. Pain: Denies pain. Neuro: Level of Consciousness is awake, alert, obeys commands, Oriented to person, place, time, situation, Appropriate for age Reports dizziness, since today. Cardiovascular: Patient's skin is warm and dry. Respiratory: Airway is patent Respiratory effort is even, unlabored, Respiratory pattern is regular, symmetrical. GI: No signs and/or symptoms were reported involving the gastrointestinal system. : No signs and/or symptoms were reported regarding the genitourinary system. EENT: No signs and/or symptoms were reported regarding the EENT system. Derm: Skin is intact, is healthy with good turgor, Skin is pink, warm \T\ dry. Musculoskeletal: No signs and/or symptoms reported regarding the musculoskeletal system. 23:01 Reassessment: Patient appears in no apparent distress at this time. Patient and/or bm8 family updated on plan of care and expected duration. Pain level reassessed. Patient is alert, oriented x 3, equal unlabored respirations, skin warm/dry/pink. Patient denies pain at this time. Patient states feeling better. Patient states symptoms have improved. Vital Signs: 18:34 BP 127 / 83; Pulse 80; Resp 18; Temp 98.6; Pulse Ox 100% on R/A; Weight 65.77 kg; iw Height 5 ft. 2 in. ; 19:12 BP 124 / 68 LA Supine; Pulse 81; Resp 16; Pulse Ox 100% ; rk3 19:12 BP 116 / 65 LA Sitting; Pulse 71; Resp 15; Pulse Ox 100% ; rk3 19:12 BP 121 / 88 LA Standing; Pulse 90; Resp 12; Pulse Ox 97% ; rk3 20:00 BP 112 / 70; Pulse 93; Resp 17; Pulse Ox 100% ; me1 21:00 BP 120 / 76; Pulse 83; Resp 17; Pulse Ox 100% ; me1 21:59 BP 113 / 73; Pulse 83; Resp 18; Pulse Ox 100% ; me1 23:01 BP 99 / 55; Pulse 103; Resp 20; Temp 98.6; Pulse Ox 100% ; Pain 0/10; bm8 18:34 Body Mass Index 26.52 (65.77 kg, 157.48 cm) iw 23:01 Pain Scale: Adult bm8 James Coma Score: 23:01 Eye Response: spontaneous(4). Motor Response: obeys commands(6). Verbal Response: bm8 oriented(5). Total: 15. ED Course: 17:52 Patient arrived in ED. cj3 17:54 Crissy Mulligan FNP-C is PSYCHIATRICP. kb 17:54 Jerald Domínguez MD is Attending Physician. kb 18:16 Yvette Hurt, RN is Primary Nurse. iw 18:16 Triage completed. iw 18:59 Basic Metabolic Panel Sent. bc6 18:59 CBC with Diff Sent. bc6 18:59 Hepatic Function Sent. bc6 18:59 Magnesium Sent. bc6 18:59 Test, Urine Sent. bc6 18:59 Protime (+inr) Sent. bc6 18:59 Ptt, Activated Sent. bc6 18:59 Troponin High Sensitivity Sent. bc6 18:59 Urinalysis w/ reflexes Sent. bc6 18:59 Initial lab(s) drawn, by sd, sent to lab. Urine collected: clean catch specimen, clear. bc6 Inserted saline lock: 24 gauge in right antecubital area, using aseptic technique. Blood collected. Flushed with 10 mL NS. 19:13 Elzbieta Villalobos, RN is Primary Nurse. me1 19:14 No provider procedures requiring assistance completed. me1 19:14 Patient has correct armband on for positive identification. Bed in low position. Call me1 light in reach. Side rails up X2. Provided Education on: POC. Verbalized understanding.. Client placed on continuous cardiac and pulse oximetry monitoring. NIBP monitoring applied. court monitor on. Pulse ox on. NIBP on. 20:17 CT Head Brain wo Cont In Process Unspecified. EDMS 22:18 Jerald Domínguez MD is Referral Physician. kb 23:01 IV discontinued, intact, bleeding controlled, No redness/swelling at site. Pressure bm8 dressing applied. 23:01 Door closed. Warm blanket given. Pillow given. Verbal reassurance given. Head of bed bm8 elevated. 23:03 Arm band placed on right wrist. bm8 Administered Medications: 19:27 Drug: NS 0.9% IV 1000 ml IV at 1000 ml once; to be given as a bolus over 60 minutes me1 Route: IV; Rate: 1000 ml; Site: right antecubital; 21:58 Follow up: Response: No adverse reaction; IV Status: Completed infusion; IV Intake: me1 1000ml 23:02 Follow up: Response: No adverse reaction; IV Status: Completed infusion bm8 Medication: 19:14 VIS not applicable for this client. me1 Intake: 21:58 IV: 1000ml; Total: 1000ml. me1 Outcome: 22:18 Discharge ordered by . kenisha 23:01 Discharged to home ambulatory, bm8 23:01 Condition: stable 23:01 Discharge instructions given to patient, family, Instructed on discharge instructions, follow up and referral plans. no drinking with medication, no driving heavy equipment, medication usage, safety practices, Demonstrated understanding of instructions, follow-up care, medications, 23:04 Patient left the ED. bm8 Signatures: Dispatcher [employer] EDMS Crissy Mulligan, PLATEN PRESS OPERATOR-C PLATEN PRESS OPERATOR-Ckb Yvette Hurt, RN RN iw [place]6 Elzbieta Villalobos RN RN me1 Neel Cassidy RN RN bm8 Micki Jesus rk3 Jacqueline Wilkes cj3 Corrections: (The following items were deleted from the chart) 19:14 18:16 Chief complaint: Patient states: dizziness, fatigue, almost passed out today iw me1
--- NOTE | 2025-03-13 22:19 | EDPHYS ---
Physician Documentation [facility] Name: Jannette Momin Age: 24 yrs Sex: Female : 2000 Arrival Date: 03/13/2025 Time: 17:45 Bed 18 Private MD: ED Physician Jerald Domínguez HPI: 03/13 18:57 This 24 yrs old Female presents to ER via Ambulatory with complaints of Dizziness, kb Fatigue, Near Syncope. 18:57 Patient is a 24-year-old female who presents for headache, dizziness, fatigue and near kb syncope that started this morning. States she woke up with a headache which is normal for her and other symptoms progressed from there. Patient states she has had these headaches for a couple of months but has not been to have them evaluated.. EMT/PARAMEDIC: 23:03 unknown bm8 Historical: - Allergies: 18:16 No Known Allergies; iw - Home Meds: 18:16 None [Active]; iw - PMHx: 18:16 None; iw - PSHx: 18:16 None; iw - Immunization history:: Adult Immunizations not up to date. - Infectious Disease History:: Denies. - Social history:: Smoking status: Reported history of juuling and/or vaping. ROS: 18:57 Constitutional: As per HPI kb Exam: 18:57 Constitutional: This is a well developed, well nourished patient who is awake, alert, kb and in no acute distress. Head/Face: Normocephalic, atraumatic. Eyes: Pupils equal round and reactive to light, extra-ocular motions intact. Lids and lashes normal. Conjunctiva and sclera are non-icteric and not injected. Cornea within normal limits. Periorbital areas with no swelling, redness, or edema. ENT: Moist Mucous membranes Cardiovascular: Regular rate Respiratory: Respirations even and unlabored. No increased work of breathing. Talking in full sentences Skin: Warm, dry with normal turgor. Normal color. MS/ Extremity: Pulses equal, no cyanosis. Neurovascular intact. Full, normal range of motion. Neuro: Awake and alert, GCS 15, oriented to person, place, time, and situation. 18:57 ECG was reviewed by the Attending Physician. Vital Signs: 18:34 BP 127 / 83; Pulse 80; Resp 18; Temp 98.6; Pulse Ox 100% on R/A; Weight 65.77 kg; iw Height 5 ft. 2 in. ; 19:12 BP 124 / 68 LA Supine; Pulse 81; Resp 16; Pulse Ox 100% ; rk3 19:12 BP 116 / 65 LA Sitting; Pulse 71; Resp 15; Pulse Ox 100% ; rk3 19:12 BP 121 / 88 LA Standing; Pulse 90; Resp 12; Pulse Ox 97% ; rk3 20:00 BP 112 / 70; Pulse 93; Resp 17; Pulse Ox 100% ; me1 21:00 BP 120 / 76; Pulse 83; Resp 17; Pulse Ox 100% ; me1 21:59 BP 113 / 73; Pulse 83; Resp 18; Pulse Ox 100% ; me1 23:01 BP 99 / 55; Pulse 103; Resp 20; Temp 98.6; Pulse Ox 100% ; Pain 0/10; bm8 18:34 Body Mass Index 26.52 (65.77 kg, 157.48 cm) iw 23:01 Pain Scale: Adult bm8 Banner Coma Score: 23:01 Eye Response: spontaneous(4). Motor Response: obeys commands(6). Verbal Response: bm8 oriented(5). Total: 15. MDM: 17:54 Medical Screening Exam initiated kb 18:58 Data reviewed: vital signs, nurses notes. kb 22:17 Differential diagnosis: cardiac arrhythmia, generalized weakness, idiopathic dizziness, kb Dehydration, migraine, tension headache, cluster headache. Counseling: I had a detailed discussion with the patient and/or guardian regarding the historical points, exam findings, and any diagnostic results supporting the discharge/admit diagnosis, lab results, radiology results, the need for outpatient follow up, a family practitioner, to return to the emergency department if symptoms worsen or persist or if there are any questions or concerns that arise at home. 03/13 18:11 Order name: Basic Metabolic Panel; Complete Time: 20:37 iw 03/13 18:11 Order name: CBC with Diff; Complete Time: 20:37 iw 03/13 18:11 Order name: Hepatic Function; Complete Time: 20:37 iw 03/13 18:11 Order name: Magnesium; Complete Time: 20:37 iw 03/13 18:11 Order name: Test, Urine; Complete Time: 19:18 03/13 18:11 Order name: Protime (+inr); Complete Time: 19:24 iw 03/13 18:11 Order name: Ptt, Activated; Complete Time: 19:24 iw 03/13 18:11 Order name: Troponin High Sensitivity; Complete Time: 20:37 iw 03/13 18:11 Order name: Urinalysis w/ reflexes; Complete Time: 19:13 iw 03/13 20:36 Order name: CBC Smear Scan; Complete Time: 20:37 EDMS 03/13 18:11 Order name: CT Head Brain wo Cont; Complete Time: 20:26 iw 03/13 18:11 Order name: Cardiac monitoring; Complete Time: 18:59 iw 03/13 18:11 Order name: EKG - Nurse/Tech; Complete Time: 18:59 iw 03/13 18:11 Order name: IV Saline Lock; Complete Time: 18:59 iw 03/13 18:11 Order name: Labs collected and sent; Complete Time: 18:59 iw 03/13 18:11 Order name: NPO; Complete Time: 18:59 iw 03/13 18:11 Order name: O2 Per Protocol; Complete Time: 18:59 iw 03/13 18:11 Order name: O2 Sat Monitoring; Complete Time: 18:59 iw 03/13 18:11 Order name: Orthostatics; Complete Time: 19:13 iw EC:57 Rate is 103 beats/min. Rhythm is regular. QRS Murray is Normal. VT interval is normal at kb 158 msec. QRS interval is normal at 84 msec. QT interval is normal at 474 msec. Administered Medications: 19:27 Drug: NS 0.9% IV 1000 ml IV at 1000 ml once; to be given as a bolus over 60 minutes me1 Route: IV; Rate: 1000 ml; Site: right antecubital; 21:58 Follow up: Response: No adverse reaction; IV Status: Completed infusion; IV Intake: me1 1000ml 23:02 Follow up: Response: No adverse reaction; IV Status: Completed infusion bm8 Disposition: 03/14 07:02 Co-signature as Attending Physician, Jerald Domínguez MD I reviewed the patient's care rt provided by the Advanced Practice Provider and agree with the diagnosis and treatment plan. Disposition Summary: 03/13/25 22:18 Discharge Ordered Notes: Location: Home kb Condition: Stable kb Diagnosis - Headache kb Followup: kb - With: Emergency Department - When: As needed - Reason: Worsening of condition Followup: kb - With: Private Physician - When: 2 - 3 days - Reason: Recheck today's complaints, Continuance of care, Re-evaluation by your physician Discharge Instructions: - Discharge Summary Sheet kb - General Headache Without Cause, [id number] kb Forms: - Medication Reconciliation Form kb - Antibiotic Education kb - Prescription Opioid Use kb - Patient Portal Instructions kb - Leadership Thank You Letter kb Signatures: Dispatcher [employer] EDCrissy Turner, ALVERTO-C [employer]-Yvette Pfeiffer, RN RN iw Jerald Domínguez MD MD rt Elzbieta Villalobos, SUHAS RN me1 Neel Cassidy RN bm8 Corrections: (The following items were deleted from the chart) 03/13 18:12 18:12 Head Brain Wo [id number] ordered. EDAK EDAK
[2025-03-13 23:45] VITALS: TEMP 98.6
[2025-03-13 23:57] VITALS: O2SAT 100
[2025-03-13 23:59] VITALS: BP 113/73
== END 2025-03-13 23:04 | disposition home or self-care (01) ==
LOC: ER 17:45
DX: R51.9 Headache, unspecified (principal); R53.83 Other fatigue; R42 Dizziness and giddiness; R55 Syncope and collapse
CPT/HCPCS: 93005; 85025; 81001; 80048; 36415; 83735; 81025; 85610; 80076; 85730; 84484; 70450; J7030